=== PATIENT | male | born 1950 | race Caucasian/White ===

== ENCOUNTER 2019-02-01 12:00 | Outpatient (RCR) | payer MEDICARE, SELFPAY ==
--- NOTE | 2018-12-07 15:14 | HP.SP.AD ---
History - History Date of Eval: 12/07/18 Other Relevant Medical History/Diagnoses/Surgery: Pt has glaucoma. He does not drive. Pt has lived in assisted living for almost four [address] [facility]. Smoking Status: Former smoker Hx Smoking Cessation Date: 8 months ago - Pain Is pain an issue with your current prescribed condition?: No - Personal Education History: High School graduate Occupation: Maintenance Apprentice Patients Living Arrangements: Assisted Living Patient Allergies - Allergies Allergies No Known Allergies Allergy (Verified 07/25/16 13:37) CLQT - CLQT CLQT Administered: Yes CLQT: Cognitive Linguistic Quick Test (CLQT) is a criterion - referenced assessment designed for adults between the ages of 18 and 89 with known or suspected neurological dysfuntions. The CLQT is to assess strength and weaknesses in five cognitive domains. Severity ratings are within normal limits, mild, moderate, severe deficits. The subtests are as follows: Date: 12/07/18 - Attention Attention: Mild - Memory Memory: Mild - Executive Functions Executive Functions: WNL - Language Language: WNL - Visuospatial Skills Visuospatial Skills: WNL - Composite Severity Rating Composite Severity Rating: WNL - Clock Drawing Severity Rating Clock Drawing Severity Rating: Mild - CLQT Comments Comments The pt was WNL on all subtests for his age but Clock Drawing (exhibited STM memory deficit by recalling 10 mins TILL 11:00 vs. 10 mins AFTER 11:00), Mazes (in which he exhibited mild difficulty with planning), and Design Generation (in which he niall limited responses indicative of limited mental flexibility). Overall deficits were mild, with the pt stating he has no concerns at home as he resides in an assisted living facility. Nonetheless, the pt may experience difficulty with higher level problem solving and planning especially with limited stimulation, with the need for further therapy beneficial in order to maintain and improve the pt's baseline level of functioning. Plan - Plan Plan: Skilled speech-language therapy is warranted and medically necessary to improve the pt's current level of cognitive-linguistic functioning, as he will benefit from strategies for higher-level planning and problem solving in order to maintain his highest level of safe, independent functioning. - Recommendations Treatment Warranted: Yes - Frequency Frequency: 1x/Week Duration: 4-6 Weeks - Prognosis Prognosis: Good - Goals that are Established: Determination:: Goals will be added/modified as deemed necessary and appropriate. Therapy will be discontinued when results of re-evaluation indicate therapy is no longer needed or lack of progress has been documented. - Goal #1-5 Goal #1: With fading 2ND GRADE TEACHER prompts, the pt will utilize targeted strategies to complete planning and problem solving activities of increasing complexity with 90% accuracy in 2/3 sessions. Goal #2: The pt will utilize compensatory strategies and provide appropriate solutions and rationale to everyday problem situations with 90% accuracy in 2/3 sessions. Education - Patient Instruction Patient Education: Diagnosis
--- NOTE | 2019-02-01 18:05 | HP.SP.DC_ITS ---
ST Discharge Summary - Discharged: Discharge: Mika Dominguez is discharged from outpatient speech-language therapy effective 02/01/19. Mika attended three sessions following his initial evaluation after not showing up for and/or cancelling three sessions. Therapy focused on patient buy-in to the importance of cognitive exercises/activities vs. a primarily sedintary lifestyle in order to maintain and/or improve his current level of cognitive-linguistic functioning. Mika was able to complete higher-level deductive reasoning puzzles with minimal assistance. He consistently brought completed homework activities back to therapy. The pt states that he is lazy but is planning to play cards, engage in social activit ies, etc... as recommended. Please reconsult as necessary.
== END 2019-02-01 19:00 | disposition home or self-care (01) ==
LOC: SP 12:00
PROVIDERS: Family Provider Family Medicine Geriatric Medicine; PCP Family Medicine Geriatric Medicine; Visit Provider Nurse Practitioner Adult Health
DX: R41.841 Cognitive communication deficit (principal)
CPT/HCPCS: 92507; 92523

== ENCOUNTER 2021-03-04 22:47 | Emergency (ER) | payer MEDICARE, MEDICAID, SELFPAY ==
[2021-03-04 22:48] VITALS: BP 128/70; PULSE 57; RESP 16; TEMP 36.9; O2SAT 93; BMI 37.5
--- NOTE | 2021-03-04 23:09 | EKG12_ITS ---
Test Reason : WEAKNESS Blood Pressure : / mmHG Vent. Rate : 057 BPM Atrial Rate : 057 BPM P-R Int : 244 ms QRS Dur : 096 ms QT Int : 434 ms P-R-T Axes : 000 -43 018 degrees QTc Int : 422 ms Sinus bradycardia with 1st degree A-V block Left axis deviation Inferior infarct , age undetermined Abnormal ECG Confirmed by LELAND LOJA, MALICK ([id number]), film editor supervisor BASSAM FLANAGAN ([id number]) on 03/07/2021 9:51:47 AM Referred By: ESTHER Confirmed By:MALICK HA MD
--- NOTE | 2021-03-04 23:34 | EX.ED.DYSGE1 ---
HPI History of Present Illness Chief Complaint: Weakness Informant: patient Narrative Narrative: Patient states that he lives at assisted living. He was watching TV and having a few beers. When he got up he just felt generalized weakness. He initially got up to his hands and knees and then made it to the bathroom to go the bathroom. He went back watch more TV. When he got up again he still felt a little bit weak. But he was able to walk out to down the wasserman. He then got a little bit weak. But this was not focal weakness. He states it was not one side. He never had any pain in any area. He had no shortness of breath. He just felt like his legs were tired. Patient states he normally drinks 2 or 3 tall boy beers in a day. He thinks he lost track today and may have drank more. He thinks this was all due to drinking too much beer but he is not sure. He states he feels fine laying in bed. When he walked he just felt a little weak. But he never had any vertigo or dizziness or instability at all. PFSH PFSH Medical History Ankle fracture, right Cataract COPD (chronic obstructive pulmonary disease) Elbow fracture, right HTN (hypertension) Retinal detachment Smoker Allergy/AdvReac Type Severity Reaction Status Date / Time No Known Allergies Allergy Verified 03/04/21 22:52 Social History Smoking Status: Current some day smoker tobacco type: cigarettes ROS ROS ED Constitutional Constitutional ED: Denies chills, fever(s), sweats or weight loss Eyes Eyes: Denies blurry vision, change in vision or diplopia ENT ENT ED: Denies rhinorrhea or sore throat Cardiovascular Cardiovascular: Denies chest pain, palpitations or racing heartbeat Respiratory/Chest Respiratory/Chest: Denies cough or dyspnea Gastrointestinal Gastrointestinal: Denies abdominal pain, diarrhea, melena, nausea or vomiting Genitourinary Genitourinary ED: Denies dysuria Musculoskeletal Musculoskeletal: Denies arthralgias, back pain, myalgias or neck pain Integumentary Denies rash Neurologic Neurologic: Reports other Details: Patient has some generalized weakness but nothing focal or lateralizing. See history of present illness. ; Denies headache(s), paresthesias or weakness Psychiatric Psychiatric: Denies depression Endocrine Endocrinology: Denies polydipsia or polyuria Allergic/Immunologic Allergic/Immunologic ED: Denies urticaria EXAM Physical Exam Const Vital Signs: 03/04/21 22:48 03/05/21 06:51 Temperature 98.5 F Temperature Source Oral Pulse Rate 57 L Respiratory Rate 16 16 Blood Pressure 128/70 H Blood Pressure Mean 89 Pulse Ox 93 Oxygen Delivery Method Nasal Cannula Oxygen Flow Rate (L/min) 2 Positive well nourished and well developed General Appearance ED: well developed HEENT Reports moist mucous membranes Negative for trauma Eyes Negative for PERRL or EOMs intact bilaterally Eyes Narrative: Pupils 2 mm equal and reactive. Neck no JVD Chest Wall inspection of chest normal Resp normal respiratory effort and clear to auscultation bilaterally Cardio regular rate and regular rhythm GI normal to inspection, nondistended, normoactive bowel sounds and non-tender Palpation: soft Back/Spine no CVA tenderness Extremity normal to inspection General Extremety ED: Negative for tenderness Neuro oriented x3 and CN's II-XII intact bilaterally Neuro Narrative: Patient has an NIH of 0. Sensorium / Orientation: alert Motor Exam: strength 5/5 throughout Psych mental status grossly normal Skin no rashes or lesions noted MDM MDM MDM Narrative Medical decision making narrative: Patient's blood work showed normal CBC including white count and hemoglobin. Electrolytes showed minimally decreased sodium but this has been chronic for him. Alcohol was elevated at 114. Urinalysis was negative. Patient still feels well. We will walk him to make sure he feels okay. If he does I think he is okay to go. His symptoms were more consistent with generalized weakness and likely due to the increase alcohol intake. This is what he thought cause this. Patient was complaining that his left foot was sore when he put weight on it. He thought he might have bruised this. But he denies falling and injuring it. I did do three-view x-ray of the left foot that I looked at. I do not see any acute fracture. Patient has been up walking and moving. He is stable. I think his overall weakness likely was caused by increased alcohol. We will get him back to his assisted living facility. Lab Data Attestation: I reviewed the patient's lab results. Labs: Laboratory Results - last 24 hr 03/04/21 03/04/21 03/04/21 23:29 23:29 23:29 WBC 10.9 RBC 4.90 Hgb 13.8 Hct 41.9 MCV 85.5 MCH 28.2 MCHC 32.9 RDW Std Deviation 39.4 RDW Coeff of Amira 12.7 Plt Count 312 MPV 9.1 Immature Gran % (Auto) 0.300 Neut % (Auto) 73.6 H Lymph % (Auto) 17.2 L [place] % (Auto) 6.1 Eos % (Auto) 2.1 Baso % (Auto) 0.7 Absolute Neuts (auto) 8.0 H Absolute Lymphs (auto) 1.87 Nucleated RBC % 0 Sodium 131 L Potassium 3.7 Chloride 98 Carbon Dioxide 23.0 Anion Gap 10 BUN 9 Creatinine 0.84 Estim Creat Clear Calc 84.49 Est GFR (MDRD) Af Amer 117 Est GFR (MDRD) Non-Af 96 BUN/Creatinine Ratio 10.8 Glucose 99 Calcium 8.9 Urine Color Urine Clarity Urine pH Ur Specific [place] Urine Protein Urine Glucose (UA) Urine Ketones Urine Occult Blood Urine Nitrite Urine Bilirubin Urine Urobilinogen Ur Leukocyte Esterase Urine RBC Urine WBC Ur Squamous Epith Cells Urine Bacteria Urine Mucus Ethyl Alcohol 114.0 03/05/21 00:32 WBC RBC Hgb Hct MCV MCH MCHC RDW Std Deviation RDW Coeff of [place]ira Plt Count MPV Immature Gran % (Auto) Neut % (Auto) Lymph % (Auto) [place] % (Auto) Eos % (Auto) Baso % (Auto) Absolute Neuts (auto) Absolute Lymphs (auto) Nucleated RBC % Sodium Potassium Chloride Carbon Dioxide Anion Gap BUN Creatinine Estim Creat Clear Calc Est GFR (MDRD) Af Amer Est GFR (MDRD) Non-Af BUN/Creatinine Ratio Glucose Calcium Urine Color Yellow Urine Clarity Clear Urine pH 5.0 Ur Specific [place] 1.015 Urine Protein 100 H Urine Glucose (UA) Normal Urine Ketones Negative Urine Occult Blood 10 H Urine Nitrite Negative Urine Bilirubin Negative Urine Urobilinogen Normal Ur Leukocyte Esterase Negative Urine RBC 0 SEEN Urine WBC 0 SEEN Ur Squamous Epith Cells 0 SEEN Urine Bacteria 0 SEEN Urine Mucus 0 SEEN Ethyl Alcohol Radiography Diagnostic Testing: Radiology Impression Foot X-Ray 03/05/21 02:57 IMPRESSION: No acute osseous abnormality. Electronically Signed: Michel Laguna MD at 4:16 EDT Tel , Service support , EKG Initial EKG: Comments: EKG done for generalized weakness read by me shows sinus rhythm with mild bradycardia and a rate of 57. No acute ST elevation or depression. He does have a first-degree AV block. QRS duration and QTc are normal. Discharge Plan Triage Chief Complaint: Weakness ED Provider: Murray Mulligan Dx/Rx/DC Orders Clinical Impression: Weakness generalized, Alcohol intoxication, Contusion of foot, left Instructions: ED Alcohol Intoxication, ED Weakness (Uncertain Cause) Primary Care Provider: George Gutierrez Chi Referrals: George Gutierrez Chi, MD [Primary Care Provider] - 3-5 Days if not improving Disposition Disposition: Assisted Living Discharge Location: [facility] Discharge Date/Time: 03/05/21 06:52
[2021-03-05 00:08] LABS: Anion Gap 10 (5-15); BUN 9 mg/dL (7-18); BUN/Creat Ratio 10.8 RATIO (10-20); Calcium,Total 8.9 mg/dL (8.5-10.1); Chloride 98 mmol/L (98-107); Creatinine, Serum 0.84 mg/dL (0.70-1.30); EST Glomerular Filtration Rate 96 mL/min (>60); Est Glom Filt Rate - Afr Amer 117 mL/min (>60); Estimated Creatinine Clearance 84.49 ml/min; Glucose 99 mg/dL (74-106); Potassium 3.7 mmol/L (3.5-5.1); Sodium Level 131 mmol/L (136-145)
[2021-03-05 00:25] LABS: Absolute Lymphocyte Count 1.87 X10^3/uL (0.83-4.51); Basophil# 0.08 X10^3/uL; Basophil% 0.7 % (0-1); Eosinophil# 0.23 X10^3/uL; Eosinophils% 2.1 % (0-5); Hematocrit 41.9 % (40-54); Hemoglobin 13.8 g/dL (13.0-16.5); Lymphocyte # 1.87 X10^3/ul (0.83-4.51); Lymphocyte % 17.2 % (19-41); Mean Corp Hgb Conc 32.9 g/dL (32-36); Mean Corpuscular Hgb 28.2 pg (27.0-32.0); Mean Corpuscular Volume 85.5 fL (80-94); Mean Platelet Vol. 9.1 fl (6.2-12.0); Monocyte# 0.66 X10^3/uL; Monocyte% 6.1 % (0-10); NRBC Flagged by Analyzer 0 % (0-5); Neutrophil # 8.01 X10^3/uL (2.7-7.7); Neutrophil % 73.6 % (47-70); Platelet Count 312 K/mm3 (150-450); RBC Distribution Width CV 12.7 % (11.6-14.6); RBC Distribution Width SD 39.4 fl (35.1-43.9); White Blood Count 10.9 K/mm3 (4.4-11.0)
[2021-03-05 00:37] LABS: Bacteria 0 SEEN /hpf (None Seen); Mucous, Urine 0 SEEN /hpf (<or=2+); Red Blood Cells-Urine 0 SEEN /hpf (0-5); Squamous Epithelial Cells - UA 0 SEEN /hpf (0-5); White Blood Cells 0 SEEN /hpf (0-5)
[2021-03-05 00:43] LABS: Color, Urine Yellow (Yellow); Glucose, Dipstick Normal (Normal); Ketone-Dipstick Negative (Negative); Leukocyte Esterase-Dipstick Negative /ul (Negative); Nitrite-Dipstick Negative (Negative); Occult Blood-Urine 10 /ul (Negative); Protein-Dipstick 100 mg/dl (Negative); Specific Gravity, Urine 1.015 (1.002-1.030); Urine Bilirubin Dipstick Negative (Negative); Urine Clarity Clear (Clear); Urine Urobilinogen Normal (Normal)
--- NOTE | 2021-03-05 02:57 | RAD_ITS ---
STUDY: X-RAY - LEFT FOOT CLINICAL: Male, 71 years old. Pain. No known injury. TECHNIQUE: 3 view(s) of the foot. COMPARISON: None. FINDINGS: No visible fracture. No osseous destruction. Alignment anatomic. Mild degenerative changes. No acute soft tissue abnormality. Calcific atherosclerosis. RAD/Foot min 3 Views IMPRESSION: No acute osseous abnormality. Electronically Signed: Michel Laguna MD at 4:16 EDT Tel , Service support ,
[2021-03-05] MEDS: Acetaminophen 325 MG Tablet 650 MG PO (03:03)
[2021-03-05 06:51] VITALS: RESP 16
== END 2021-03-05 06:52 | disposition home or self-care (01) ==
PROVIDERS: Emergency Provider Emergency Medicine; PCP Family Medicine Geriatric Medicine
DX: F10.129 Alcohol abuse with intoxication, unspecified (principal); R53.1 Weakness; S90.32XA Contusion of left foot, initial encounter; J44.9 Chronic obstructive pulmonary disease, unspecified; I10 Essential (primary) hypertension; F17.210 Nicotine dependence, cigarettes, uncomplicated; Y90.5 Blood alcohol level of 100-119 mg/100 ml; X58.XXXA Exposure to other specified factors, initial encounter; Y93.89 Activity, other specified; Y92.89 Other specified places as the place of occurrence of the external cause; Y99.8 Other external cause status
CPT/HCPCS: 73630; 80048; 81001; 82077; 85025; 93005; 99284

== ENCOUNTER → 2021-06-04 14:35 | Outpatient (CLI) | payer MEDICARE, MEDICAID, SELFPAY ==
[2021-06-04 17:45] LABS: Absolute Lymphocyte Count 2.02 X10^3/uL (0.83-4.51); Absolute Neutrophil Count 5.5 X10^3/uL (2.0-7.7); Basophil# 0.08 X10^3/uL; Basophil% 0.9 % (0-1); Eosinophil# 0.42 X10^3/uL; Eosinophils% 4.7 % (0-5); Hematocrit 41.9 % (40-54); Hemoglobin 13.7 g/dL (13.0-16.5); Lymphocyte # 2.02 X10^3/ul (0.83-4.51); Lymphocyte % 22.6 % (19-41); Mean Corp Hgb Conc 32.7 g/dL (32-36); Mean Corpuscular Hgb 27.5 pg (27.0-32.0); Mean Platelet Vol. 9.2 fl (6.2-12.0); Monocyte# 0.86 X10^3/uL; Monocyte% 9.6 % (0-10); NRBC Flagged by Analyzer 0 % (0-5); Neutrophil # 5.54 X10^3/uL (2.7-7.7); Neutrophil % 61.9 % (47-70); Platelet Count 344 K/mm3 (150-450); RBC Distribution Width CV 12.6 % (11.6-14.6); Red Blood Count 4.99 M/mm3 (4.6-6.2)
[2021-06-04 18:13] LABS: ALB/GLOB Ratio 0.8 RATIO (0.9-2.4); AST(SGOT) 24 U/L (15-37); Alanine Aminotransfer ALT/SGPT 48 U/L (16-61); Albumin, Serum 3.5 g/dL (3.2-5.0); Alkaline Phosphatase 112 U/L (45-117); Anion Gap 5 (5-15); BUN 7 mg/dL (7-18); BUN/Creat Ratio 7.5 RATIO (10-20); Calcium,Total 8.8 mg/dL (8.5-10.1); Chloride 100 mmol/L (98-107); Cholesterol 159 mg/dL (200); Creatinine, Serum 0.93 mg/dL (0.70-1.30); EST Glomerular Filtration Rate 85 mL/min (>60); Est Glom Filt Rate - Afr Amer 103 mL/min (>60); Globulin 4.3 g/dL (2.2-4.2); Glucose 89 mg/dL (74-106); High Density Lipoprotein 88 mg/dL; PSA,Total- Diagnostic 0.51 ng/mL (0.0-4.0); Potassium 3.8 mmol/L (3.5-5.1); Protein, Total 7.8 g/dL (6.4-8.2); Sodium Level 134 mmol/L (136-145); Triglycerides 117 mg/dL; Very Low Density Lipoprotein 23 mg/dL (5-40)
== END ==
PROVIDERS: PCP Family Medicine Geriatric Medicine; Visit Provider Registered Nurse
DX: I10 Essential (primary) hypertension (principal); N40.0 Benign prostatic hyperplasia without lower urinary tract symptoms; E55.9 Vitamin D deficiency, unspecified; E78.5 Hyperlipidemia, unspecified
CPT/HCPCS: 36415; 80053; 80061; 82306; 84153; 85025

== ENCOUNTER → 2022-03-20 | Outpatient (CLI) | payer MEDICARE, MEDICAID, SELFPAY ==
[2022-03-20 18:13] LABS: Anion Gap 5 (5-15); BUN 13 mg/dL (7-18); BUN/Creat Ratio 13.1 RATIO (10-20); Calcium,Total 9.2 mg/dL (8.5-10.1); Chloride 104 mmol/L (98-107); Cholesterol 154 mg/dL (200); Creatinine, Serum 0.99 mg/dL (0.70-1.30); EST Glomerular Filtration Rate 79 mL/min (>60); Est Glom Filt Rate - Afr Amer 96 mL/min (>60); Glucose 90 mg/dL (74-106); High Density Lipoprotein 56 mg/dL; Potassium 3.6 mmol/L (3.5-5.1); Sodium Level 138 mmol/L (136-145); Triglycerides 134 mg/dL; Very Low Density Lipoprotein 27 mg/dL (5-40)
== END | disposition home or self-care (01) ==
LOC: MFPLAB 15:36
PROVIDERS: PCP Family Medicine; Referring Provider Family Medicine; Visit Provider Family Medicine
DX: I10 Essential (primary) hypertension (principal)
CPT/HCPCS: 36415; 80048; 80061

== ENCOUNTER 2022-08-04 12:22 | Observation (INO) | payer MEDICARE, MEDICAID, SELFPAY ==
[2022-08-04] VITALS (12 sets, daily range): BP systolic 143–170; BP diastolic 82–144; PULSE 63–668; RESP 13–22; TEMP 36.1–36.6; O2SAT 85–95; BMI 85.3; BMI 33.5; BMI 32.5
--- NOTE | 2022-08-04 12:20 | CT_ITS ---
We are attempting to reach an attending provider to discuss findings. An addendum with communication details will be sent when the communication is complete. HISTORY: Neuro deficit, acute, stroke suspected. TECHNIQUE: [place]/head and carotid CT angiogram protocol was performed after the intravenous administration of 100 mL Isovue 370. NASCET criteria using the distal ICAs for comparison were used for evaluation of stenoses. 3D reconstructions were reviewed. A radiation dose optimization technique was used for this scan. 1745 images. COMPARISON: CT head same day. FINDINGS: AORTIC ARCH AND BRANCHES: Mild atherosclerosis. RIGHT CCA: Mild calcified plaque at the bifurcation. No occlusion, significant stenosis or dissection. RIGHT ICA: Calcified plaque with less than 50% stenosis proximally. No occlusion, significant stenosis or dissection. LEFT CCA: Mild calcified plaque at the bifurcation. No occlusion, significant stenosis or dissection. LEFT ICA: Calcified plaque proximally less than 50% stenosis. No occlusion, significant stenosis or dissection. RIGHT VERTEBRAL ARTERY: Dominant with mild calcified plaque at the origin. No occlusion, significant stenosis or dissection. LEFT VERTEBRAL ARTERY: Hypoplastic and patent. ICAs: No significant stenosis at the intracranial/visualized segments. Moderate calcified plaque at both carotid siphons. ACAs: No significant stenosis at the visualized segments. MCAs: No significant stenosis at the visualized segments. change over: No significant stenosis at the visualized segments. BASILAR ARTERY: Mild calcified plaque without significant stenosis or occlusion. VERTEBRAL ARTERIES: Dominant intracranial right vertebral and hypoplastic left vertebral arteries with approximately 60% stenosis. No evidence of intracranial aneurysm or vascular malformation. CT/STROKE CTA Head AND Neck W/Con IMPRESSION: Bilateral carotid atherosclerosis without evidence for significant stenosis or occlusion in the carotid or vertebral arteries of the neck. No evidence for large vessel occlusion the [place] region. 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 Electronically Signed: Olga Champagne MD at 12:56 EST ,
--- NOTE | 2022-08-04 12:25 | RAD_ITS ---
HISTORY: Neuro deficit, acute, stroke suspected. TECHNIQUE: XR Chest 1 View. COMPARISON: CT 02/15/2015. FINDINGS: CARDIOMEDIASTINAL BORDERS: Cardiac silhouette within normal limits in size. Mediastinal contour unremarkable with calcification of the aortic knob. LUNGS: Mild linear and patchy opacities in the lung bases. PLEURA: Mild left pleural scarring without pleural effusion or pneumothorax identified. OSSEOUS STRUCTURES: Degenerative change. RAD/Chest 1 View IMPRESSION: Mild bibasilar atelectasis or inflammation. Electronically Signed: Olga Champagne MD at 13:32 EST ,
--- NOTE | 2022-08-04 12:25 | EKG12_ITS ---
Test Reason : POSS STROKE Blood Pressure : / mmHG Vent. Rate : 066 BPM Atrial Rate : 066 BPM P-R Int : 236 ms QRS Dur : 112 ms QT Int : 478 ms P-R-T Axes : 000 -24 042 degrees QTc Int : 501 ms Sinus rhythm with 1st degree A-V block Prolonged QT Abnormal ECG Confirmed by TUNDE LOJA, ELANA ([id number]), pictures editor BASSAM FLANAGAN ([id number]) on 08/05/2022 1:56:15 PM Referred By: Confirmed By:ELANA GRIFFITHS MD
--- NOTE | 2022-08-04 12:25 | CT_ITS ---
We are attempting to reach an attending provider to discuss findings. An addendum with communication details will be sent when the communication is complete. HISTORY: Neuro deficit, acute, stroke suspected. TECHNIQUE: Multiple axial images were obtained of the head without intravenous contrast. A radiation dose optimization technique was used for this scan. 337 images. COMPARISON: None. FINDINGS: BRAIN PARENCHYMA: Multiple foci and zones of low attenuation in the bilateral cerebral white matter compatible with chronic small vessel ischemic gliosis. Old lacunar infarcts in the left basal ganglia. No acute intra-axial hemorrhage identified. CSF SPACES: Generalized volume loss. No midline shift or other significant mass effect. No acute extra-axial hemorrhage seen. OTHER: Intact calvarium. No significant air fluid levels in the paranasal sinuses or mastoid air cells. Bilateral scleral banding. Small left frontal scalp lipoma. ASPECTS Score for Acute Strokes: 10 CT/STROKE Brain/Head without Cont IMPRESSION: No acute intracranial process identified. Chronic involutional and white matter changes. Electronically Signed: Olga Champagne MD at 12:45 EST ,
[2022-08-04 12:34] LABS: Absolute Lymphocyte Count 1.53 X10^3/uL (0.83-4.51); Absolute Neutrophil Count 8.4 X10^3/uL (2.0-7.7); Basophil# 0.04 X10^3/uL; Basophil% 0.4 % (0-1); Hematocrit 43.9 % (40-54); Hemoglobin 14.6 g/dL (13.0-16.5); Lymphocyte # 1.53 X10^3/ul (0.83-4.51); Lymphocyte % 14.8 % (19-41); Mean Corp Hgb Conc 33.3 g/dL (32-36); Mean Corpuscular Hgb 28.3 pg (27.0-32.0); Mean Corpuscular Volume 85.2 fL (80-94); Mean Platelet Vol. 9.6 fl (6.2-12.0); Monocyte# 0.22 X10^3/uL; Monocyte% 2.1 % (0-10); NRBC Flagged by Analyzer 0 % (0-5); Neutrophil # 8.44 X10^3/uL (2.7-7.7); Neutrophil % 81.9 % (47-70); Platelet Count 327 K/mm3 (150-450); RBC Distribution Width CV 14.3 % (11.6-14.6); Red Blood Count 5.15 M/mm3 (4.6-6.2); White Blood Count 10.3 K/mm3 (4.4-11.0)
[2022-08-04 12:43] LABS: Prothrombin Time (Protime)PT. 13.1 SECONDS (11.7-14.9)
[2022-08-04 12:49] LABS: Anion Gap 12 (5-15); BUN 10 mg/dL (7-18); Calcium,Total 9.1 mg/dL (8.5-10.1); Chloride 101 mmol/L (98-107); Creatinine, Serum 0.83 mg/dL (0.70-1.30); EST Glomerular Filtration Rate 97 mL/min (>60); Est Glom Filt Rate - Afr Amer 117 mL/min (>60); Estimated Creatinine Clearance 84.29 ml/min; Glucose 141 mg/dL (74-106); Potassium 3.5 mmol/L (3.5-5.1); Sodium Level 136 mmol/L (136-145); Troponin-I HS 10 pg/mL (3.0-78.0)
[2022-08-04 12:53] LABS: Mucous, Urine 0 SEEN /hpf (<or=2+)
[2022-08-04 12:54] LABS: Color, Urine Yellow (Yellow); Glucose, Dipstick Normal (Normal); Leukocyte Esterase-Dipstick 500 /ul (Negative); Nitrite-Dipstick Negative (Negative); Occult Blood-Urine 25 /ul (Negative); Protein-Dipstick 100 mg/dl (Negative); Specific Gravity, Urine 1.015 (1.002-1.030); Urine Bilirubin Dipstick Negative (Negative); Urine Clarity Cloudy (Clear); Urine Urobilinogen Normal (Normal); Urine pH 6.5 (5.0 - 8.0)
[2022-08-04 12:58] LABS: Ketone-Dipstick 150 mg/dl (Negative)
[2022-08-04 13:05] LABS: Bacteria 3+ /hpf (None Seen); Red Blood Cells-Urine 0-5 SEEN /hpf (0-5); Squamous Epithelial Cells - UA 0-5 SEEN /hpf (0-5); White Blood Cells >100 SEEN /hpf (0-5)
[2022-08-04] MEDS: Ondansetron 4 MG/2 ML Vial IV (13:11)
[2022-08-04] MEDS: Ceftriaxone 1 GM/50 ML BAG IV (14:08)
--- NOTE | 2022-08-04 14:41 | EX.ED.DYSGE1 ---
HPI History of Present Illness Chief Complaint: Stroke Alert Informant: patient and EMS Onset/Context/Timing Onset: Today (99) Quality: Dysarthria, right-sided facial droop, bilateral upper extremity ataxia Worsened by: nothing Relieved by: nothing Associated Symptoms Associated Symptoms: no additional Narrative Narrative: Patient has a remote history of stroke with no deficits. He was sent today by his nurse. She noted he had been complaining of vertigo since 1 AM. Unsure of when his last known normal was. EMS noted dysarthria and right-sided facial droop as well as bilateral upper extremity ataxia and activated a stroke alert. Prior similar symptoms: No Recent Illness/Hospitalization: No PFSH PFS Medical History Ankle fracture, right Cataract COPD (chronic obstructive pulmonary disease) Elbow fracture, right HTN (hypertension) Retinal detachment Smoker Stroke Home Medications acetaminophen 325 mg tablet 325 mg PO QHS BACK PAIN 08/04/22 [History Last Taken 08/03/22] albuterol sulfate 90 mcg/actuation aerosol inhaler 2 puff inhalation Q4H PRN PRN Shortness Of Breath 08/04/22 [History Last Taken Unknown] amlodipine 10 mg tablet 10 mg PO DAILY BP 08/04/22 [History Last Taken 08/04/22] aspirin 81 mg chewable tablet 81 mg PO DAILY HEALTH 08/04/22 [History Last Taken 08/04/22] bimatoprost 0.01 % eye drops ([place]umigan) 1 drp RIGHT EYE QHS 08/04/22 [History Last Taken 08/03/22] cholecalciferol (vitamin D3) 25 mcg (1,000 unit) tablet 25 mcg PO DAILY SUPPLEMENT 08/04/22 [History Last Taken 08/04/22] cyanocobalamin (vitamin B-12) 500 mcg tablet 500 mcg PO DAILY SUPPLEMENT 08/04/22 [History Last Taken 08/04/22] ergocalciferol (vitamin D2) 1,250 mcg (50,000 unit) capsule 1,250 mcg PO SA SUPPLEMENT 08/04/22 [History Last Taken 08/03/22] fluticasone propionate 50 mcg/actuation nasal spray,suspension 1 spray intranasal DAILY PRN ALLERGIES 08/04/22 [History Last Taken Unknown] guaifenesin 100 mg/5 mL oral liquid 200 mg PO QHS PRN Congestion 08/04/22 [History Last Taken Unknown] guaifenesin 400 mg tablet (Mucus Relief) 400 mg PO TID PRN Congestion 08/04/22 [History Last Taken Unknown] hydroxyzine pamoate 50 mg capsule 50 mg PO TID ANXIETY 08/04/22 [History Last Taken 08/04/22] lisinopril 20 mg tablet 20 mg PO BID BP 08/04/22 [History Last Taken 08/04/22] loratadine 10 mg tablet 10 mg PO QHS ALLERGIES 08/04/22 [History Last Taken 08/03/22] melatonin 5 mg tablet 10 mg PO QHS SLEEP 08/04/22 [History Last Taken 08/03/22] metoprolol tartrate 25 mg tablet 12.5 mg PO BID BP 08/04/22 [History Last Taken 08/04/22] mirabegron 25 mg tablet,extended release 24 hr (Myrbetriq) 25 mg PO DAILY BLADDER 08/04/22 [History Last Taken 08/04/22] mirtazapine 30 mg tablet 30 mg PO QHS SLEEP 08/04/22 [History Last Taken 08/03/22] montelukast 10 mg tablet 10 mg PO QHS ALLERGIES 08/04/22 [History Last Taken 08/03/22] multivitamin 1 tab PO DAILY SUPPLEMENT 08/04/22 [History Last Taken 08/04/22] potassium chloride 10 mEq capsule,extended release 20 meq PO DAILY POTASSIUM 08/04/22 [History Last Taken 08/04/22] pravastatin 40 mg tablet 40 mg PO QHS CHOLESTEROL 08/04/22 [History Last Taken 08/03/22] tamsulosin 0.4 mg capsule 0.4 mg PO QHS PROSTATE 08/04/22 [History Last Taken 08/03/22] timolol maleate 0.5 % eye drops 1 drp RIGHT EYE BID 08/04/22 [History Last Taken 08/04/22] trazodone 100 mg tablet 100 mg PO QHS SLEEP 08/04/22 [History Last Taken 08/03/22] trazodone 50 mg tablet 25 mg PO QHS SLEEP 08/04/22 [History Last Taken 08/03/22] Allergy/AdvReac Type Severity Reaction Status Date / Time No Known Allergies Allergy Verified 03/04/21 22:52 Social History Smoking Status: Current some day smoker tobacco type: cigarettes ROS ROS ED Constitutional Constitutional ED: Denies chills or fever(s) Eyes Eyes: Denies blurry vision or change in vision ENT ENT ED: Denies ear pain Cardiovascular Cardiovascular: Denies chest pain Respiratory/Chest Respiratory/Chest: Denies cough Gastrointestinal Gastrointestinal: Denies abdominal pain, nausea or vomiting Genitourinary Genitourinary ED: Denies dysuria Musculoskeletal Musculoskeletal: Denies arthralgias, back pain, myalgias or neck pain Integumentary Denies abscess Neurologic Neurologic: Denies headache(s), paresthesias or weakness Psychiatric Psychiatric: Denies anxiety Endocrine Endocrinology: Denies cold intolerance Hematologic/Lymphatic Hematologic/Lymphatic: Reports systems reviewed and no addt'l complaints, except as documented Allergic/Immunologic Allergic/Immunologic ED: Denies mouth swelling EXAM Physical Exam Const Vital Signs: 08/04/22 12:25 08/04/22 12:31 08/04/22 12:30 Temperature 97.0 F L Temperature Source Temporal Pulse Rate 668 H 68 Respiratory Rate 14 Blood Pressure 164/86 H 164/86 H Blood Pressure Mean 112 112 Pulse Ox 93 85 85 Oxygen Delivery Method Room Air Room Air Room Air Oxygen Flow Rate (L/min) 08/04/22 12:39 08/04/22 13:00 08/04/22 13:00 Temperature Temperature Source Pulse Rate 65 65 Respiratory Rate 13 13 Blood Pressure 153/86 H 153/86 H Blood Pressure Mean 108 108 Pulse Ox 92 92 92 Oxygen Delivery Method Nasal Cannula Nasal Cannula Nasal Cannula Oxygen Flow Rate (L/min) 2 2 2 08/04/22 13:23 08/04/22 13:30 08/04/22 14:00 Temperature Temperature Source Pulse Rate 63 67 77 Respiratory Rate 17 15 22 H Blood Pressure 164/91 H 161/93 H 157/86 H Blood Pressure Mean 115 115 109 Pulse Ox 93 90 92 Oxygen Delivery Method Nasal Cannula Nasal Cannula Nasal Cannula Oxygen Flow Rate (L/min) 2 2 2 08/04/22 14:00 08/04/22 14:30 08/04/22 14:30 Temperature 97.0 F L Temperature Source Temporal Pulse Rate 77 85 85 Respiratory Rate 22 H 20 H 20 H Blood Pressure 157/86 H 170/144 H 170/144 H Blood Pressure Mean 109 152 152 Pulse Ox 92 93 93 Oxygen Delivery Method Nasal Cannula Nasal Cannula Nasal Cannula Oxygen Flow Rate (L/min) 2 3 3 Positive well developed and unkempt General Appearance ED: unkempt and well developed HEENT Reports dry mucous membranes Mouth ED: Yes dry mucous membranes Mouth: dry mucous membranes Eyes PERRL and EOMs intact bilaterally Resp normal respiratory effort and clear to auscultation bilaterally Cardio regular rate and regular rhythm GI normal to inspection, nondistended, normoactive bowel sounds Extremity normal to inspection Neuro oriented x3, CN's II-XII intact bilaterally and no sensory deficits noted Neuro Narrative: Bilateral upper extremity ataxia, mild. Dysarthria, and the patient reports this is not new. He has some facial asymmetry with droop on the right, but labial fold is normal. Sensorium / Orientation: alert Psych mental status grossly normal Appearance: unkempt Skin no rashes or lesions noted MDM MDM MDM Narrative Medical decision making narrative: EKG showed sinus rhythm at a rate of 66 with prolonged QT. No sign of infarction. This was interpreted by me and contributed to patient care in the ED. CT brain and CTA head and neck showed no acute process, just chronic changes. I agree with the radiologist interpretation. Chest x-ray showed no acute pathology, interpreted by the radiologist and myself. Stroke evaluation was performed. Given the unclear etiology, certainly at 11 hours or more duration, he is not a candidate for tPA. There is no evidence of large vessel occlusion. I am not certain if all of the symptoms are new, or if just the vertigo is new. White count is normal. Hemoglobin normal. Coags unremarkable. Metabolic panel normal except glucose 141. Nothing acute. Troponin normal, 10. Urinalysis does show signs of infection. Cultures were sent and he was treated with Rocephin. I am not sure if his vertigo or other symptoms are related to stroke. They are complicated by an underlying UTI. He also has a history of alcohol abuse, so I did send an alcohol level. He has some social issues clearly contributing to this. Hospitalist was contacted to admit for further care. Impression #1 vertigo #2 UTI #3 history of alcohol abuse #4 history of stroke Critical care time 39 minutes excluding any billable procedure time for emergent care of the patient. Lab Data Attestation: I reviewed the patient's lab results. Labs: Laboratory Results - last 24 hr 08/04/22 08/04/22 08/04/22 12:12 12:12 12:12 WBC 10.3 RBC 5.15 Hgb 14.6 Hct 43.9 MCV 85.2 MCH 28.3 MCHC 33.3 RDW Std Deviation 44.0 H RDW Coeff of Amira 14.3 Plt Count 327 MPV 9.6 Immature Gran % (Auto) 0.800 Neut % (Auto) 81.9 H Lymph % (Auto) 14.8 L [place] % (Auto) 2.1 Eos % (Auto) 0.0 Baso % (Auto) 0.4 Absolute Neuts (auto) 8.4 H Absolute Lymphs (auto) 1.53 Nucleated RBC % 0 PT 13.1 INR 1.0 APTT 33.0 Sodium 136 Potassium 3.5 Chloride 101 Carbon Dioxide 23.0 Anion Gap 12 BUN 10 Creatinine 0.83 Estim Creat Clear Calc 84.29 Est GFR (MDRD) Af Amer 117 Est GFR (MDRD) Non-Af 97 BUN/Creatinine Ratio 12.0 Glucose 141 H Calcium 9.1 Troponin I High Sens 10 Urine Color Urine Clarity Urine pH Ur Specific [place] Urine Protein Urine Glucose (UA) Urine Ketones Urine Occult Blood Urine Nitrite Urine Bilirubin Urine Urobilinogen Ur Leukocyte Esterase Urine RBC Urine WBC Ur Squamous Epith Cells Urine Bacteria Urine Mucus 08/04/22 12:49 WBC RBC Hgb Hct MCV MCH MCHC RDW Std Deviation RDW Coeff of [place] Plt Count MPV Immature Gran % (Auto) Neut % (Auto) Lymph % (Auto) [place] % (Auto) Eos % (Auto) Baso % (Auto) Absolute Neuts (auto) Absolute Lymphs (auto) Nucleated RBC % PT INR APTT Sodium Potassium Chloride Carbon Dioxide Anion Gap BUN Creatinine Estim Creat Clear Calc Est GFR (MDRD) Af Amer Est GFR (MDRD) Non-Af BUN/Creatinine Ratio Glucose Calcium Troponin I High Sens Urine Color Yellow Urine Clarity Cloudy Urine pH 6.5 Ur Specific [place] 1.015 Urine Protein 100 H Urine Glucose (UA) Normal Urine Ketones 150 A* Urine Occult Blood 25 H Urine Nitrite Negative Urine Bilirubin Negative Urine Urobilinogen Normal Ur Leukocyte Esterase 500 H Urine RBC 0-5 SEEN Urine WBC >100 SEEN Ur Squamous Epith Cells 0-5 SEEN Urine Bacteria 3+ Urine Mucus 0 SEEN Radiography Diagnostic Testing: Clinical Impression(s) from Imaging Studies Head/Neck CTA 08/04/22 12:20 IMPRESSION: Bilateral carotid atherosclerosis without evidence for significant stenosis or occlusion in the carotid or vertebral arteries of the neck. No evidence for large vessel occlusion the [place]. 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 Electronically Signed: Olga Champagne MD at 12:56 EST , ADDENDUM: 08/04/22 1310 IMPRESSION: Bilateral carotid atherosclerosis without evidence for significant stenosis or occlusion in the carotid or vertebral arteries of the neck. No evidence for large vessel occlusion the [place] region. 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 N.B. : The above Results were Read Back by Olga Champagne MD to Sven Martinez MD, and understanding confirmed on 08/04/2022 13:04:44 (ET). Electronically Signed: Olga Champagne MD at 12:56 EST , Brain CT 08/04/22 12:25 IMPRESSION: No acute intracranial process identified. Chronic involutional and white matter changes. Electronically Signed: Olga Champagne MD at 12:45 EST , ADDENDUM: 08/04/22 1253 IMPRESSION: No acute intracranial process identified. Chronic involutional and white matter changes. N.B. : The above Results were Read Back by Olga Champagne MD to Sven Martinez MD, and understanding confirmed on 08/04/2022 12:46:23 (ET). Electronically Signed: Olga Champagne MD at 12:45 EST , Chest X-Ray 08/04/22 12:25 IMPRESSION: Mild bibasilar atelectasis or inflammation. Electronically Signed: Olga Champagne MD at 13:32 EST , Discharge Plan Triage Chief Complaint: Stroke Alert ED Provider: Sven Martinez Dx/Rx/DC Orders Prescriptions: No Action albuterol sulfate 90 mcg/actuation HFA aerosol inhaler 2 puff INHALATION Q4H PRN PRN (Reason: Shortness Of Breath) Label Comments: 2 PUFFS BY MOUTH EVERY 4 HOURS NEEDED FOR COPD potassium chloride 10 mEq capsule, extended release 20 meq PO DAILY Label Comments: 2 CAPSULES (20MEQ) BYAMOUTH DAILY DX: HYPOKALEMIA / NURSE TO REORDER trazodone 50 mg tablet 25 mg PO QHS Label Comments: 1/2 TABLET (25MG) BYTMOUTH AT BEDTIME ([id number]) DX: / NURSE TO REORDER pravastatin 40 mg tablet 40 mg PO QHS Label Comments: 1 TABLET BY MOUTH ATHBEDTIME DX: HYPERLIPIDEMIA / NURSE TO REORDER lisinopril 20 mg tablet 20 mg PO BID Label Comments: 1 TABLET BY MOUTH TWICE AIDAY DX: HYPERTENSION / NURSE TO REORDER hydroxyzine pamoate 50 mg capsule 50 mg PO TID Label Comments: 1 CAPSULE BY MOUTH THREEATIMES DAILY DX:ANXIETY/RNURSE TO REORDER tamsulosin 0.4 mg capsule 0.4 mg PO QHS Label Comments: 1 CAPSULE BY MOUTH ATMBEDTIME DX: / NURSE TOOREORDER trazodone 100 mg tablet 100 mg PO QHS Label Comments: 1 TABLET BY MOUTH ATTBEDTIME DX: INSOMNIA / NURSE TO REORDER amlodipine 10 mg tablet 10 mg PO DAILY Label Comments: 1 TABLET BY MOUTH DAILYIDX: HYPERTENSION / NURSERTO REORDER mirtazapine 30 mg tablet 30 mg PO QHS Label Comments: 1 TABLET BY MOUTH ATHBEDTIME DX: DEPRESSION /GNURSE TO REORDER montelukast 10 mg tablet 10 mg PO QHS Label Comments: 1 TABLET BY MOUTH ATTBEDTIME DX: / NURSE TODREORDERE ergocalciferol (vitamin D2) 1,250 mcg (50,000 unit) capsule 1,250 mcg PO SA Rx Instructions: FRIDAY timolol maleate 0.5 % drops 1 drp RIGHT EYE BID Label Comments: 1 DROP INTO RIGHT EYE 2ITIMES A DAY DX: loratadine 10 mg tablet 10 mg PO QHS Label Comments: 1 TABLET BY MOUTH ATABEDTIME DX: ALLERGIC RHINITIS / NURSE TO REORDER metoprolol tartrate 25 mg tablet 12.5 mg PO BID Label Comments: 1/2 TABLET (12.5MG) BYOMOUTH TWICE DAILY DX:ESSENTIAL HYPERTENSION/ NURSE TO REORDER Lumigan 0.01 % drops 1 drp RIGHT EYE QHS Label Comments: 1 DROP INTO RIGHT EYE ATSBEDTIME Myrbetriq 25 mg tablet extended release 24 hr 25 mg PO DAILY Label Comments: 1 TABLET BY MOUTH DAILY /ONURSE TO REORDER/ multivitamin Tablet 1 tab PO DAILY acetaminophen 325 mg Tablet 325 mg PO QHS guaifenesin [Tussin Cough] 100 mg/5 mL Liquid 200 mg PO QHS PRN (Reason: Congestion) cyanocobalamin (vitamin B-12) 500 mcg Tablet 500 mcg PO DAILY aspirin 81 mg Tablet,Chewable 81 mg PO DAILY fluticasone propionate [Flonase] 50 mcg/actuation [place],Suspension 1 spray INTRANASAL DAILY PRN (Reason: ALLERGIES) Rx Instructions: administer into each nostril guaifenesin [Mucus Relief] 400 mg Tablet 400 mg PO TID PRN (Reason: Congestion) cholecalciferol (vitamin D3) 25 mcg (1,000 unit) Tablet 25 mcg PO DAILY melatonin 5 mg Tablet 10 mg PO QHS Primary Care Provider: Edin Cardenas Referrals: Edin Cardenas MD [Primary Care Provider] -
--- NOTE | 2022-08-04 15:08 | ED.RN ---
ADMISSION DX DOES NOT INCLUDE CVA; DR. CUELLAR TO OK TO COMPLETE NIH ASSESSMENTS. [facility] UNCHANGED FOR PAST SEVERAL ASSESSMENTS, CONTINUING TO SCORE 3.
[2022-08-04 15:27] LABS: Alcohol, Blood (Medical)-Serum < 3.0 mg/dL
--- NOTE | 2022-08-04 17:46 | HP.PCM.HOS_ITS ---
HPI - General General Date of Admission: 08/04/22 Date of Service: 08/04/22 Chief Complaint: Vertigo, dysarthria, right-sided facial droop, bilateral upper extremity ataxia HPI Narrative MACY BEY, is a 72 M who presented to the emergency department at [facility] on 08/04/2022 with multiple neurological complaints including vertigo, dysarthria, right-sided facial droop, and bilateral upper extremity ataxia. The patient reported that he woke up about 1 AM to take a shit he reported it came out explosively with 1 fart and he noticed that the room was spinning at that time. He went back to bed and when he woke up there was noted dysarthria, right-sided facial droop and bilateral upper extremity ataxia. This was noted by EMS when they arrived. By the time I evaluated the patient his symptoms had improved. He reported he was having some nausea that had proved since he received medication and that all of the other neurological deficits had resolved. He admits that he drinks alcohol still with his last beer being yesterday. He states that he drinks 2 tall boys daily. Given the fact that his last known well was unknown stroke team was not called. The patient does wear 2 L of oxygen at baseline. Upon presentation his temperature was 97, heart rate was 68, blood pressure was 164/86, respiratory was 14 and oxygen saturation was 85% on room air. As noted above the patient wears 2 L of oxygen at baseline and when he was placed on 2 L of oxygen his oxygen saturations improved between 90 and 93%. His CBC was unremarkable. Coags were normal. His chemistry panel was unremarkable other than a hyperglycemia with a glucose of 141. TSH was normal at 0.6 and his initial troponin was 10. His urine was consistent with infection and showed leukoesterase, white cells at greater than 100 per high-powered field and 3+ bacteria. His F alcohol level was normal. Chest x-ray showed bibasilar atelectasis. CT of the head showed chronic involutional and white matter changes with no intracranial acute process. CTA of the head and neck showed bilateral carotid atherosclerosis without evidence of significant stenosis or occlusion with no evidence of large vessel occlusion in the standing [place]. 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 All calcifications were less than 50%. [facility] Medical History (Updated 08/04/22 @ 17:[address] Renuka Carreno, DO) Alcohol abuse Ankle fracture, right Cataract COPD (chronic obstructive pulmonary disease) Elbow fracture, right HTN (hypertension) Retinal detachment Smoker Stroke Home Medications acetaminophen 325 mg tablet 325 mg PO QHS BACK PAIN 08/04/22 [History Last Taken 08/03/22] albuterol sulfate 90 mcg/actuation aerosol inhaler 2 puff inhalation Q4H PRN PRN Shortness Of Breath 08/04/22 [History Last Taken Unknown] amlodipine 10 mg tablet 10 mg PO DAILY BP 08/04/22 [History Last Taken 08/04/22] aspirin 81 mg chewable tablet 81 mg PO DAILY HEALTH 08/04/22 [History Last Taken 08/04/22] bimatoprost 0.01 % eye drops (Lumigan) 1 drp RIGHT EYE QHS 08/04/22 [History Last Taken 08/03/22] cholecalciferol (vitamin D3) 25 mcg (1,000 unit) tablet 25 mcg PO DAILY SUPPLEMENT 08/04/22 [History Last Taken 08/04/22] cyanocobalamin (vitamin B-12) 500 mcg tablet 500 mcg PO DAILY SUPPLEMENT 08/04/22 [History Last Taken 08/04/22] ergocalciferol (vitamin D2) 1,250 mcg (50,000 unit) capsule 1,250 mcg PO SA TRUONG PPLEMENT 08/04/22 [History Last Taken 08/03/22] fluticasone propionate 50 mcg/actuation nasal spray,suspension 1 spray intranasal DAILY PRN ALLERGIES 08/04/22 [History Last Taken Unknown] guaifenesin 100 mg/5 mL oral liquid 200 mg PO QHS PRN Congestion 08/04/22 [History Last Taken Unknown] guaifenesin 400 mg tablet (Mucus Relief) 400 mg PO TID PRN Congestion 08/04/22 [History Last Taken Unknown] hydroxyzine pamoate 50 mg capsule 50 mg PO TID ANXIETY 08/04/22 [History Last Taken 08/04/22] lisinopril 20 mg tablet 20 mg PO BID BP 08/04/22 [History Last Taken 08/04/22] loratadine 10 mg tablet 10 mg PO QHS ALLERGIES 08/04/22 [History Last Taken 08/03/22] melatonin 5 mg tablet 10 mg PO QHS SLEEP 08/04/22 [History Last Taken 08/03/22] metoprolol tartrate 25 mg tablet 12.5 mg PO BID BP 08/04/22 [History Last Taken 08/04/22] mirabegron 25 mg tablet,extended release 24 hr (Myrbetriq) 25 mg PO DAILY BLADDER 08/04/22 [History Last Taken 08/04/22] mirtazapine 30 mg tablet 30 mg PO QHS SLEEP 08/04/22 [History Last Taken 08/03/22] montelukast 10 mg tablet 10 mg PO QHS ALLERGIES 08/04/22 [History Last Taken 08/03/22] multivitamin 1 tab PO DAILY SUPPLEMENT 08/04/22 [History Last Taken 08/04/22] potassium chloride 10 mEq capsule,extended release 20 meq PO DAILY POTASSIUM 08/04/22 [History Last Taken 08/04/22] pravastatin 40 mg tablet 40 mg PO QHS CHOLESTEROL 08/04/22 [History Last Taken 08/03/22] tamsulosin 0.4 mg capsule 0.4 mg PO QHS PROSTATE 08/04/22 [History Last Taken 08/03/22] timolol maleate 0.5 % eye drops 1 drp RIGHT EYE BID 08/04/22 [History Last Taken 08/04/22] trazodone 100 mg tablet 100 mg PO QHS SLEEP 08/04/22 [History Last Taken 08/03/22] trazodone 50 mg tablet 25 mg PO QHS SLEEP 08/04/22 [History Last Taken 08/03/22] Allergy/AdvReac Type Severity Reaction Status Date / Time No Known Allergies Allergy Verified 03/04/21 22:52 unable to obtain no surgical history Social History (Updated 08/04/22 @ 17:[address] Renuka Carreno, DO) housing: group home Smoking Status: Current every day smoker tobacco type: cigarettes Smoking packs per day: 0.5 Smoking cigarettes per day: 10.0 alcohol intake: current details: Patient drinks 2 tall boys daily on a regular basis substance use type: does not use ROS Constitutional Constitutional: Denies anorexia, change in weight, chills, fatigue, fever(s), malaise, night sweats, weakness or other Eyes Eyes: Denies blurry vision, change in eye color, change in vision, discharge from eye(s), double vision, erythema, eye pain, loss of vision or other ENT HEENT: Denies abnormal hearing, dysphagia, ear pain, epistaxis, headache(s), hearing loss, nasal congestion, nasal discharge, post nasal drip, sinus pre ssure, sore throat or other Cardiovascular Cardiovascular: Denies chest pain, claudication, dyspnea on exertion, edema, lightheadedness, orthopnea, palpitations, paroxysmal nocturnal dyspnea, rapid heart rate, syncope or other Respiratory/Chest Respiratory/Chest: Denies cough, dyspnea, excessive phlegm production, hemoptysis, productive cough, shortness of breath at rest, shortness of breath with exertion, wheezing or other Gastrointestinal Gastrointestinal: Denies abdominal pain, coffee ground emesis, constipation, diarrhea, dyspepsia, hematemesis, hematochezia, loose stools, melena, nausea, vomiting or other Genitourinary Genitourinary: Reports burning urination, urinary frequency, urinary hesitancy and urinary urgency; Denies difficulty urinating, dysuria, hematuria, nocturia, urinary incontinence or other Musculoskeletal Musculoskeletal: Reports back pain; Denies arthralgias, joint pain, joint stiffness, joint swelling, myalgias, neck pain or other Neurologic Neurologic: Denies abnormal gait, abnormal speech, confusion, disequilibrium, dizziness, focal weakness, headache(s), numbness, paresthesias, seizure-like activity, seizures, syncope, tingling, tremor(s) or other Psychiatric Psychiatric: Reports depression; Denies anxiety, homicidal ideation, suicidal ideation or other Endocrine Endocrinology: Denies change in body appearance, cold intolerance, excessive sweating, heat intolerance, polydipsia, polyuria or other Hematologic/Lymphatic Hematologic/Lymphatic: Denies anemia, easy bleeding, easy bruising, lymphadenopathy or other Allergic/Immunologic Allergic/Immunologic: Denies rhinitis, hives, eczemia, asthma or other Vital Signs Vital Signs Vital Signs: 08/04/22 12:25 08/04/22 12:31 08/04/22 12:30 Temperature 97.0 F L Temperature Source Temporal Pulse Rate 668 H 68 Respiratory Rate 14 Blood Pressure 164/86 H 164/86 H Blood Pressure Mean 112 112 Blood Pressure Source Blood Pressure Position Blood Pressure Location Pulse Ox 93 85 85 Oxygen Delivery Method Room Air Room Air Room Air Oxygen Flow Rate (L/min) 08/04/22 12:39 08/04/22 13:00 08/04/22 13:00 Temperature Temperature Source Pulse Rate 65 65 Respiratory Rate 13 13 Blood Pressure 153/86 H 153/86 H Blood Pressure Mean 108 108 Blood Pressure Source Blood Pressure Position Blood Pressure Location Pulse Ox 92 92 92 Oxygen Delivery Method Nasal Cannula Nasal Cannula Nasal Cannula Oxygen Flow Rate (L/min) 2 2 2 08/04/22 13:23 08/04/22 13:30 08/04/22 14:00 Temperature Temperature Source Pulse Rate 63 67 77 Respiratory Rate 17 15 22 H Blood Pressure 164/91 H 161/93 H 157/86 H Blood Pressure Mean 115 115 109 Blood Pressure Source Blood Pressure Position Blood Pressure Location Pulse Ox 93 90 92 Oxygen Delivery Method Nasal Cannula Nasal Cannula Nasal Cannula Oxygen Flow Rate (L/min) 2 2 2 08/04/22 14:00 08/04/22 14:30 08/04/22 14:30 Temperature 97.0 F L Temperature Source Temporal Pulse Rate 77 85 85 Respiratory Rate 22 H 20 H 20 H Blood Pressure 157/86 H 170/144 H 170/144 H Blood Pressure Mean 109 152 152 Blood Pressure Source Blood Pressure Position Blood Pressure Location Pulse Ox 92 93 93 Oxygen Delivery Method Nasal Cannula Nasal Cannula Nasal Cannula Oxygen Flow Rate (L/min) 2 3 3 08/04/22 14:58 08/04/22 15:00 08/04/22 15:00 Temperature Temperature Source Pulse Rate 66 67 Respiratory Rate 15 17 Blood Pressure 160/106 H 160/106 H Blood Pressure Mean 124 124 Blood Pressure Source Blood Pressure Position Blood Pressure Location Pulse Ox 93 92 Oxygen Delivery Method Nasal Cannula Nasal Cannula Nasal Cannula Oxygen Flow Rate (L/min) 3 2 08/04/22 16:35 08/04/22 17:37 Temperature 97.7 F L Temperature Source Oral Pulse Rate 72 Respiratory Rate 16 Blood Pressure 169/82 H Blood Pressure Mean 104 Blood Pressure Source Monitor Blood Pressure Position Semi-Fowlers Blood Pressure Location Right Arm Pulse Ox 95 Oxygen Delivery Method Nasal Cannula Nasal Cannula Oxygen Flow Rate (L/min) 3 3 Weight Weight: 102.7 kg Body Mass Index (BMI) 32.5 Physical Exam Const alert, oriented x3, no apparent distress and well nourished Constitutional Narrative: Obese white male, sitting up in bed, appears comfortable nontoxic at this time, somewhat disheveled General Appearance: cooperative HEENT normocephalic, head/scalp atraumatic and moist oral mucous membranes HEENT Narrative: Mild to moderate hearing loss, poor dentition Eyes PERRL, EOMs intact bilaterally and conjunctivae normal Eyes Narrative: No scleral icterus Neck no lymphadenopathy, supple and no carotid bruits Neck Narrative: He midline, no thyroid enlargement, neck is short and thick Resp normal respiratory effort, no retractions and no use of accessory muscles Resp Narrative: Diffusely diminished but clear Auscultation: Negative for crackles, rhonchi or wheezes Cardio regular rate, regular rhythm, S1 normal heart sound, S2 normal heart sound, no murmurs, no rub, no gallops and no clicks GI normal to inspection, nondistended, normoactive bowel sounds, soft to palpation and non-tender Extremity no clubbing, cyanosis or edema Extremity Narrative: 2+ pedal pulses Skin no rashes or lesions noted, no wounds, skin turgor normal, no jaundice, no petechiae and no mottling Neuro oriented x3, CN's II-XII intact bilaterally, moves all extremities and no focal motor deficits Neuro Narrative: Speech is mildly slurred on my exam however patient feels that it is close to his baseline, patient with generalized weakness proximal greater than distal but no focal deficit on exam Psych Psych Narrative: Patient appears to be somewhat impulsive Results Lab / Micro Data Result Diagrams: 08/04/22 12:12 08/04/22 12:12 Labs: Laboratory Results - last 24 hr 08/04/22 12:12: WBC 10.3, RBC 5.15, Hgb 14.6, Hct 43.9, MCV 85.2, MCH 28.3, MCHC 33.3, RDW Std Deviation 44.0 H, RDW Coeff of Amira 14.3, Plt Count 327, MPV 9.6, Immature Gran % (Auto) 0.800, Neut % (Auto) 81.9 H, Lymph % (Auto) 14.8 L, [place] % (Auto) 2.1, Eos % (Auto) 0.0, Baso % (Auto) 0.4, Absolute Neuts (auto) 8.4 H, Absolute Lymphs (auto) 1.53, Nucleated RBC % 0 08/04/22 12:12: PT 13.1, INR 1.0, APTT 33.0 08/04/22 12:12: Sodium 136, Potassium 3.5, Chloride 101, Carbon Dioxide 23.0, Anion Gap 12, BUN 10, Creatinine 0.83, Estim Creat Clear Calc 84.29, Est GFR (MDRD) Af Amer 117, Est GFR (MDRD) Non-Af 97, BUN/Creatinine Ratio 12.0, Glucose 141 H, Calcium 9.1, Troponin I High Sens 10 08/04/22 12:12: TSH 0.60 08/04/22 12:49: Urine Color Yellow, Urine Clarity Cloudy, Urine pH 6.5, Ur Specific Preemption 1.015, Urine Protein 100 H, Urine Glucose (UA) Normal, Urine Ketones 150 A*, Urine Occult Blood 25 H, Urine Nitrite Negative, Urine Bilirubin Negative, Urine Urobilinogen Normal, Ur Leukocyte Esterase 500 H, Urine RBC 0-5 SEEN, Urine WBC >100 SEEN, Ur Squamous Epith Cells 0-5 SEEN, Urine Bacteria 3+, Urine Mucus 0 SEEN 08/04/22 14:30: Ethyl Alcohol < 3.0 Radiology Impression Head/Neck CTA 08/04/22 12:20 IMPRESSION: Bilateral carotid atherosclerosis without evidence for significant stenosis or occlusion in the carotid or vertebral arteries of the neck. No evidence for large vessel occlusion the [place] region. 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 Electronically Signed: Olga Champagne MD at 12:56 EST , ADDENDUM: 08/04/22 1310 IMPRESSION: Bilateral carotid atherosclerosis without evidence for significant stenosis or occlusion in the carotid or vertebral arteries of the neck. No evidence for large vessel occlusion the standing [place] region. 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 N.B. : The above Results were Read Back by Olga Champagne MD to Sven Martinez MD, and understanding confirmed on 08/04/2022 13:04:44 (ET). Electronically Signed: Olga Champagne MD at 12:56 EST , Brain CT 08/04/22 12:25 IMPRESSION: No acute intracranial process identified. Chronic involutional and white matter changes. Electronically Signed: Olga Champagne MD at 12:45 EST , ADDENDUM: 08/04/22 1253 IMPRESSION: No acute intracranial process identified. Chronic involutional and white matter changes. N.B. : The above Results were Read Back by Olga Champagne MD to Sven Martinez MD, and understanding confirmed on 08/04/2022 12:46:23 (ET). Electronically Signed: Olga Champagne MD at 12:45 EST , Chest X-Ray 08/04/22 12:25 IMPRESSION: Mild bibasilar atelectasis or inflammation. Electronically Signed: Olga Champagne MD at 13:32 EST , Assessment & Plan Assessment/Plan (1) Weakness generalized: (2) Dysarthria: (3) Facial droop: (4) Ataxia of upper extremity: (5) UTI (urinary tract infection): PLAN: Plan Dysarthria/right-sided facial droop/bilateral upper extremity ataxia -CT of the brain unremarkable -CTA of the head and neck without any obstructing lesions or stenosis however he did have bilateral internal carotid stenosis less than 50% -MRI pending -Echo pending -Start aspirin -Check hemoglobin A1c -Check lipids -Continue home pravastatin at 40 mg nightly -If any abnormalities on MRI would initiate Plavix Urinary tract infection -UA is highly consistent with infection -Culture pending -Continue ceftriaxone initiated emergency department 1 g every 24 Glaucoma -Continue eyedrops BPH -Continue Flomax History of stroke -Continue aspirin Vitamin D deficiency -Restart vitamin D supplementation at discharge COPD with ongoing tobacco abuse -Recommend cessation -Patient denies need for nicotine replacement therapy -As needed nebulizers -Continue home guaifenesin Hypertension/hyperlipidemia -Continue home lisinopril -Continue home metoprolol -Continue home amlodipine -Continue home statin -Check lipids Depression -Continue home hydroxyzine -Continue home mirtazapine -Continue home trazodone Glaucoma -Continue home eyedrops Alcohol abuse -Patient is currently drinking only 2 tall boys a day -I suspect risk of withdrawal is low -Monitor clinically DVT prophylaxis -Lovenox -SCDs CODE STATUS -Full code Charges/Coding Visit Charges Inpatient E&M: 99792 Init Hosp L3
[2022-08-04] MEDS: Timolol 0.5% 5ML OPTH.BTL 1 DRP RIGHT EYE (20:57)
[2022-08-04] MEDS: Latanoprost 0.005% 1 Bottle 1 DRP RIGHT EYE (20:57)
[2022-08-04] MEDS: Acetaminophen 500 MG Tablet 1000 MG PO (20:58)
[2022-08-04] MEDS: hydrOXYzine PAM 25 MG Capsule 50 MG PO (20:58)
[2022-08-04] MEDS: Mirtazapine 30 MG Tablet PO (20:59)
[2022-08-04] MEDS: Tamsulosin HCl 0.4 MG Capsule PO (20:59)
[2022-08-04] MEDS: MELATONIN 10 MG TABLET PO (20:59)
[2022-08-04] MEDS: Pravastatin 40 MG Tablet PO (20:59)
[2022-08-04] MEDS: traZODone 100 MG Tablet PO (21:00)
[2022-08-04] MEDS: traZODone 50 MG Tablet 25 MG PO (21:00)
[2022-08-04] MEDS: Montelukast 10 MG Tablet PO (21:00)
[2022-08-04] MEDS: Loratadine 10 MG Tablet PO (21:01)
[2022-08-05] VITALS (18 sets, daily range): BP systolic 144–168; BP diastolic 75–106; PULSE 53–99; RESP 16–18; TEMP 36.4–36.7; O2SAT 89–96; BMI 32.5
[2022-08-05] MEDS: hydrOXYzine PAM 25 MG Capsule 50 MG PO ×3 (05:05→22:53)
[2022-08-05] MEDS: Acetaminophen 500 MG Tablet 1000 MG PO ×3 (05:06→22:53)
--- NOTE | 2022-08-05 05:55 | ECHOD_ITS ---
Reason For Study: TIA/Stroke Procedure This was a 2D Doppler, Color Flow transthoracic echocardiogram. Exam performed portable in patient room. Left Ventricle Normal LV size. Moderate concentric left ventricular hypertrophy. Left ventricular systolic function is normal. The estimated ejection fraction is 65 %. No regional wall motion abnormalities noted. Right Ventricle Normal RV size. Normal systolic function. Atria Normal left atrium. Normal right atrium. Bubble contrast study negative for right to left interatrial shunt. Mitral Valve Normal mitral valve. Tricuspid Valve Normal tricuspid valve. Aortic Valve The aortic valve is not well visualized. Pulmonic Valve Normal pulmonic valve. Great Vessels Normal aortic root. The pulmonary artery is normal size. Normal inferior vena cava. Pericardium/Pleural No pericardial effusion. Medication Performed a rapid injection of agitated mix of 9 cc saline and 1cc air to assess for atrial septal defect. MMode/2D Measurements & Calculations LVIDd: 4.1 cm IVSd: 1.5 cm Ao root diam: 3.3 cm LVIDs: 2.5 cm LVPWd: 1.4 cm RVDd: 3.3 cm FS: 39.8 % LAV(MOD-bp): 40.2 ml LVAd ap4: 25.1 cm2 SV(MOD-sp4): 46.1 ml LAV(MOD-bp) Indexed: 18.3 ml/m2 LVLd ap4: 7.6 cm LAV(MOD-sp2): 38.2 ml EDV(MOD-sp4): 67.8 ml LAV(MOD-sp4): 38.7 ml EDV(sp4-el): 70.4 ml LVAs ap4: 12.4 cm2 LVLs ap4: 6.0 cm ESV(MOD-sp4): 21.8 ml ESV(sp4-el): 21.9 ml EF(MOD-sp4): 67.9 % EF(sp4-el): 68.9 % SV(sp4-el): 48.5 ml LA A4 area: 16.5 cm2 LA dimension(2D): 4.1 cm RA A4 area: 12.1 cm2 Doppler Measurements & Calculations MV E max cecil: 71.6 cm/sec Lat Peak E' Cecil: 8.4 cm/sec Med Peak E' Cecil: 10.2 cm/sec MV A max cecil: 87.8 cm/sec E/E' lat: 8.5 E/E' med: 7.1 MV E/A: 0.82 Ao V2 max: 136.2 cm/sec LV V1 max: 108.6 cm/sec PA V2 max: 153.0 cm/sec Ao max P.4 mmHg LV V1 max P.7 mmHg Ao V2 mean: 99.2 cm/sec Ao mean P.2 mmHg Ao V2 VTI: 26.6 cm ECHO/Echo Complete Interpretation Summary Normal LV size. Moderate concentric left ventricular hypertrophy. Left ventricular systolic function is normal. The estimated ejection fraction is 65 %. Bubble contrast study negative for right to left interatrial shunt. Ordering Physician: Renuka Carreno Referring Physician: Edin Cardenas Performed By: Meseret Velázquez, SHEA, RVT
[2022-08-05 06:25] LABS: Absolute Lymphocyte Count 2.73 X10^3/uL (0.83-4.51); Absolute Neutrophil Count 7.9 X10^3/uL (2.0-7.7); Basophil# 0.05 X10^3/uL; Basophil% 0.4 % (0-1); Eosinophil# 0.15 X10^3/uL; Eosinophils% 1.3 % (0-5); Hematocrit 45.3 % (40-54); Lymphocyte # 2.73 X10^3/ul (0.83-4.51); Mean Corp Hgb Conc 33.1 g/dL (32-36); Mean Corpuscular Hgb 28.6 pg (27.0-32.0); Mean Corpuscular Volume 86.5 fL (80-94); Mean Platelet Vol. 9.7 fl (6.2-12.0); Monocyte# 1.06 X10^3/uL; Monocyte% 8.9 % (0-10); NRBC Flagged by Analyzer 0 % (0-5); Neutrophil # 7.85 X10^3/uL (2.7-7.7); Neutrophil % 66.1 % (47-70); Platelet Count 290 K/mm3 (150-450); RBC Distribution Width CV 14.6 % (11.6-14.6); RBC Distribution Width SD 46.3 fl (35.1-43.9); Red Blood Count 5.24 M/mm3 (4.6-6.2); White Blood Count 11.9 K/mm3 (4.4-11.0)
[2022-08-05 06:58] LABS: ALB/GLOB Ratio 0.7 RATIO (0.9-2.4); AST(SGOT) 13 U/L (15-37); Alanine Aminotransfer ALT/SGPT 23 U/L (16-61); Albumin, Serum 3.1 g/dL (3.2-5.0); Alkaline Phosphatase 97 U/L (45-117); Anion Gap 5 (5-15); BUN 7 mg/dL (7-18); BUN/Creat Ratio 9.2 RATIO (10-20); Calcium,Total 9.1 mg/dL (8.5-10.1); Chloride 104 mmol/L (98-107); Cholesterol 137 mg/dL (200); Creatinine, Serum 0.76 mg/dL (0.70-1.30); EST Glomerular Filtration Rate 107 mL/min (>60); Est Glom Filt Rate - Afr Amer 129 mL/min (>60); Estimated Creatinine Clearance 69.96 ml/min; Globulin 4.2 g/dL (2.2-4.2); Glucose 119 mg/dL (74-106); High Density Lipoprotein 62 mg/dL; Phosphorus 3.2 mg/dL (2.5-4.9); Potassium 2.8 mmol/L (3.5-5.1); Protein, Total 7.3 g/dL (6.4-8.2); Sodium Level 138 mmol/L (136-145); Triglycerides 107 mg/dL; Very Low Density Lipoprotein 21 mg/dL (5-40)
--- NOTE | 2022-08-05 08:18 | PCM.PN.HOSP ---
Subjective Subjective Feels that his symptoms have significantly improved if not resolved entirely, denying other complaints at this time Objective Data Objective Data Vital Signs: Vital Signs Temp Pulse Resp BP Pulse Ox O2 Del Method O2 Flow Rate 97.8 F 73 16 168/92 H 96 CPAP 2 08/05/22 04:45 08/05/22 06:32 08/05/22 04:45 08/05/22 04:45 08/05/22 04:45 08/05/22 04:45 08/05/22 00:45 FiO2 40 08/05/22 04:45 Oxygen Flow Rate (L/min) 2 Oxygen Delivery Method CPAP Weight: 102.7 kg Body Mass Index (BMI) 32.5 Intake & Output: Intake and Output for Last 24 Hours 08/03/22 08/04/22 08/05/22 23:59 23:59 23:59 Intake Total 290 / 530 240 / 240 Output Total 650 / 1100 650 / 650 Balance -360 / -570 -410 / -410 Lab / Micro Data Result Diagrams: 08/05/22 05:27 08/05/22 05:27 Labs: Laboratory Results - last 24 hr 08/04/22 12:12: WBC 10.3, RBC 5.15, Hgb 14.6, Hct 43.9, MCV 85.2, MCH 28.3, MCHC 33.3, RDW Std Deviation 44.0 H, RDW Coeff of Amira 14.3, Plt Count 327, MPV 9.6, Immature Gran % (Auto) 0.800, Neut % (Auto) 81.9 H, Lymph % (Auto) 14.8 L, [place] % (Auto) 2.1, Eos % (Auto) 0.0, Baso % (Auto) 0.4, Absolute Neuts (auto) 8.4 H, Absolute Lymphs (auto) 1.53, Nucleated RBC % 0 08/04/22 12:12: PT 13.1, INR 1.0, APTT 33.0 08/04/22 12:12: Sodium 136, Potassium 3.5, Chloride 101, Carbon Dioxide 23.0, Anion Gap 12, BUN 10, Creatinine 0.83, Estim Creat Clear Calc 84.29, Est GFR (MDRD) Af Amer 117, Est GFR (MDRD) Non-Af 97, BUN/Creatinine Ratio 12.0, Glucose 141 H, Calcium 9.1, Troponin I High Sens 10 08/04/22 12:12: TSH 0.60 08/04/22 12:49: Urine Color Yellow, Urine Clarity Cloudy, Urine pH 6.5, Ur Specific [place] 1.015, Urine Protein 100 H, Urine Glucose (UA) Normal, Urine Ketones 150 A*, Urine Occult Blood 25 H, Urine Nitrite Negative, Urine Bilirubin Negative, Urine Urobilinogen Normal, Ur Leukocyte Esterase 500 H, Urine RBC 0-5 SEEN, Urine WBC >100 SEEN, Ur Squamous Epith Cells 0-5 SEEN, Urine Bacteria 3+, Urine Mucus 0 SEEN 08/04/22 14:30: Ethyl Alcohol < 3.0 08/05/22 05:27: WBC 11.9 H, RBC 5.24, Hgb 15.0, Hct 45.3, MCV 86.5, MCH 28.6, MCHC 33.1, RDW Std Deviation 46.3 H, RDW Coeff of Amira 14.6, Plt Count 290, MPV 9.7, Immature Gran % (Auto) 0.300, Neut % (Auto) 66.1, Lymph % (Auto) 23.0, [place] % (Auto) 8.9, Eos % (Auto) 1.3, Baso % (Auto) 0.4, Absolute Neuts (auto) 7.9 H, Absolute Lymphs (auto) 2.73, Nucleated RBC % 0 08/05/22 05:27: Sodium 138, Potassium 2.8 L, Chloride 104, Carbon Dioxide 29.0, Anion Gap 5, BUN 7, Creatinine 0.76, Estim Creat Clear Calc 69.96, Est GFR (MDRD) Af Amer 129, Est GFR (MDRD) Non-Af 107, BUN/Creatinine Ratio 9.2 L, Glucose 119 H, Calcium 9.1, Phosphorus 3.2, Magnesium 2.0, Total Bilirubin 0.40, AST 13 L, ALT 23, Alkaline Phosphatase 97, Total Protein 7.3, Albumin 3.1 L, Globulin 4.2, Albumin/Globulin Ratio 0.7 L, Triglycerides 107, Cholesterol 137, LDL Cholesterol 54, VLDL Cholesterol 21, HDL Cholesterol 62 Radiography Diagnostic Testing: Radiology Impression Head/Neck CTA 08/04/22 12:20 IMPRESSION: Bilateral carotid atherosclerosis without evidence for significant stenosis or occlusion in the carotid or vertebral arteries of the neck. No evidence for large vessel occlusion the [place] region. 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 Electronically Signed: Olga Champagne MD at 12:56 EST , ADDENDUM: 08/04/22 1310 IMPRESSION: Bilateral carotid atherosclerosis without evidence for significant stenosis or occlusion in the carotid or vertebral arteries of the neck. No evidence for large vessel occlusion the [place] region. 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 N.B. : The above Results were Read Back by Olga Champagne MD to Sven Martinez MD, and understanding confirmed on 08/04/2022 13:04:44 (ET). Electronically Signed: Olga Champagne MD at 12:56 EST , Brain CT 08/04/22 12:25 IMPRESSION: No acute intracranial process identified. Chronic involutional and white matter changes. Electronically Signed: Olga Champagne MD at 12:45 EST , ADDENDUM: 08/04/22 1253 IMPRESSION: No acute intracranial process identified. Chronic involutional and white matter changes. N.B. : The above Results were Read Back by Olga Champagne MD to Sven Martinez MD, and understanding confirmed on 08/04/2022 12:46:23 (ET). Electronically Signed: Olga Champagne MD at 12:45 EST , Chest X-Ray 08/04/22 12:25 IMPRESSION: Mild bibasilar atelectasis or inflammation. Electronically Signed: Olga Champagne MD at 13:32 EST , Physical Exam Const alert and no apparent distress HEENT normocephalic and head/scalp atraumatic Eyes Eyes Narrative: EOM grossly intact, anicteric Neck supple Resp normal respiratory effort and clear to auscultation bilaterally Cardio regular rate and regular rhythm GI soft to palpation, non-tender and non-distended Extremity Extremity Narrative: No edema appreciated Neuro moves all extremities Neuro Narrative: Cranial nerves II through XII intact, several beats of nystagmus on far lateral gaze bilaterally, finger-nose without significant difficulty, no significant discrepancy in pupil size Psych Psych Narrative: Overall cooperative Assessment & Plan Assessment/Plan (1) Dysarthria: (2) Facial droop: (3) Ataxia of upper extremity: (4) UTI (urinary tract infection): PLAN: Plan #Vertigo, dysarthria, right-sided facial droop, bilateral upper extremity ataxia Symptoms had been observed by EMS but had improved in ED by the time of evaluation CT of the head with chronic changes, CTA of the head and neck showed bilateral carotid atherosclerosis with no significant stenosis or occlusion Aspirin, statin MRI no acute change PT/OT Echo with EF of 65% and negative bubble study but does have some moderate concentric left ventricular hypertrophy #UTI 3+ bacteria and elevated leukoesterase Urine culture pending Rocephin initiated #Chronic hypoxic respiratory failure secondary to COPD with ongoing tobacco abuse Wears 2 L of O2 at baseline As needed nebulizers #Alcohol use Alcohol level normal on arrival, last drink day prior to admission, drinks 2 tall boys daily Risk of withdrawal below #Glaucoma Eyedrops #BPH Flomax #Hypertension Continue home medications #MDD Continue trazodone, mirtazapine, hydroxyzine #DVT ppx: SCDs and Lovenox Carmen Hayes MD Charges/Coding Visit Charges Inpatient E&M: 65474 Subs Hosp L2
--- NOTE | 2022-08-05 09:00 | MRI_ITS ---
EXAM: MR HEAD WITHOUT INTRAVENOUS CONTRAST CLINICAL INDICATION: Stroke. TECHNIQUE: Multiplanar and multisequence MR images of the brain were obtained without intravenous contrast. This report was created using [employer] report generation technology. COMPARISON: CT head and CTA head with contrast 08/04/2022. FINDINGS: BRAIN AND EXTRA-AXIAL SPACES: No diffusion restriction to suspect acute or subacute ischemic infarct. T2 FLAIR hyperintensity foci in the periventricular white matter are chronic white matter ischemic changes. No intra- or extra-axial hemorrhage. No intracranial mass or mass effect. Posterior fossa structures are unremarkable. No hydrocephalus. Basal cisterns are patent. SELLA: Unremarkable. Normal sella turcica, pituitary gland, infundibular stalk, optic chiasm and hypothalamus. AUDITORY SYSTEM: Unremarkable. The internal auditory canals are patent. BONES/JOINTS: Unremarkable. No discrete lytic or blastic abnormalities. SINUSES: Unremarkable as visualized. Clear. MASTOID AIR CELLS: Unremarkable as visualized. Clear. ORBITS: Unremarkable as visualized. Both globes, extraocular muscles, optic nerves and retrobulbar fat appear unremarkable. VASCULATURE: Unremarkable as visualized. Normal flow voids in the major intracranial circulation. MRI/Brain without Contrast IMPRESSION: 1. No acute or subacute findings in the head/brain. 2. Chronic periventricular white matter ischemic changes in both cerebral hemispheres. Electronically Signed: True Guevara MD at 10:55 EST ,
[2022-08-05] MEDS: LORazepam 2 MG/ML Syringe 0.5 MG IV (09:26)
[2022-08-05] MEDS: Potassium Chloride Oral Tablet 10 MEQ 20 MEQ PO (09:28)
[2022-08-05] MEDS: Cyanocobalamin 500 MCG Tablet PO (09:28)
[2022-08-05] MEDS: Mirabegron 25 MG TAB.ER.24H PO (09:28)
[2022-08-05] MEDS: FLU VACC QS2022-23(6MOS UP)/PF 60 MCG/0.5 ML SYRINGE IM (09:28)
[2022-08-05] MEDS: Aspirin 81 MG TAB.CHEW PO (09:28)
[2022-08-05] MEDS: Enoxaparin 40 MG/0.4 ML Syringe SC (09:29)
[2022-08-05] MEDS: Timolol 0.5% 5ML OPTH.BTL 1 DRP RIGHT EYE (09:30)
[2022-08-05] MEDS: Ceftriaxone 1 GM/50 ML BAG IV (09:30)
--- NOTE | 2022-08-05 11:31 | CASEMGMT ---
Patient is from [facility]. SW sent updates to [facility]. Await PT/OT chau to assist with determining safe d/c plan. Barbi Wu SERVICE SPRINKLER HELPER KERVIN
[2022-08-05] MEDS: Potassium Chloride Oral Tablet 20 MEQ 60 MEQ PO (11:40)
--- NOTE | 2022-08-05 11:59 | CASEMGMT ---
JIM received a call from Deonna at [facility]. She asked if patient was going to be discharged today. JIM let Deonna know JIM is not sure as physician has not rounded yet. JIM will let her know when JIM knows more. Barbi Wu MSW KERVIN
[2022-08-05] MEDS: amLODIPine 10 MG Tablet PO (13:42)
[2022-08-05] MEDS: Lisinopril 20 MG Tablet PO ×2 (13:42→22:54)
[2022-08-05] MEDS: Metoprolol Tartrate 25 MG Tablet 12.5 MG PO ×2 (13:42→22:48)
[2022-08-05] MEDS: Latanoprost 0.005% 1 Bottle 1 DRP RIGHT EYE (22:44)
[2022-08-05] MEDS: traZODone 100 MG Tablet PO (22:45)
[2022-08-05] MEDS: traZODone 50 MG Tablet 25 MG PO (22:45)
[2022-08-05] MEDS: Tamsulosin HCl 0.4 MG Capsule PO (22:46)
[2022-08-05] MEDS: MELATONIN 10 MG TABLET PO (22:47)
[2022-08-05] MEDS: Montelukast 10 MG Tablet PO (22:47)
[2022-08-05] MEDS: Loratadine 10 MG Tablet PO (22:48)
[2022-08-05] MEDS: Mirtazapine 30 MG Tablet PO (22:50)
[2022-08-05] MEDS: Pravastatin 40 MG Tablet PO (22:50)
--- NOTE | 2022-08-05 23:30 | CPS ---
PT refused CPAP for tonight
[2022-08-06] VITALS (10 sets, daily range): BP systolic 120–155; BP diastolic 87–111; PULSE 62–92; RESP 14–18; TEMP 36.5–37.1; O2SAT 92–94; BMI 32.5
[2022-08-06 05:02] LABS: Absolute Lymphocyte Count 2.85 X10^3/uL (0.83-4.51); Absolute Neutrophil Count 6.6 X10^3/uL (2.0-7.7); Basophil% 0.9 % (0-1); Eosinophils% 2.8 % (0-5); Hematocrit 45.9 % (40-54); Hemoglobin 14.7 g/dL (13.0-16.5); Lymphocyte # 2.85 X10^3/ul (0.83-4.51); Lymphocyte % 26.4 % (19-41); Mean Corpuscular Hgb 27.9 pg (27.0-32.0); Mean Corpuscular Volume 87.3 fL (80-94); Mean Platelet Vol. 9.5 fl (6.2-12.0); Monocyte# 0.93 X10^3/uL; Monocyte% 8.6 % (0-10); NRBC Flagged by Analyzer 0 % (0-5); Neutrophil # 6.59 X10^3/uL (2.7-7.7); Platelet Count 294 K/mm3 (150-450); RBC Distribution Width CV 14.7 % (11.6-14.6); RBC Distribution Width SD 47.2 fl (35.1-43.9); Red Blood Count 5.26 M/mm3 (4.6-6.2); White Blood Count 10.8 K/mm3 (4.4-11.0)
[2022-08-06 05:30] LABS: ALB/GLOB Ratio 0.7 RATIO (0.9-2.4); AST(SGOT) 10 U/L (15-37); Alanine Aminotransfer ALT/SGPT 25 U/L (16-61); Albumin, Serum 2.8 g/dL (3.2-5.0); Alkaline Phosphatase 86 U/L (45-117); Anion Gap 7 (5-15); BUN 13 mg/dL (7-18); BUN/Creat Ratio 16.1 RATIO (10-20); Calcium,Total 8.8 mg/dL (8.5-10.1); Chloride 106 mmol/L (98-107); Creatinine, Serum 0.81 mg/dL (0.70-1.30); EST Glomerular Filtration Rate 100 mL/min (>60); Est Glom Filt Rate - Afr Amer 121 mL/min (>60); Estimated Creatinine Clearance 86.37 ml/min; Glucose 119 mg/dL (74-106); Potassium 3.5 mmol/L (3.5-5.1); Protein, Total 6.8 g/dL (6.4-8.2); Sodium Level 140 mmol/L (136-145)
[2022-08-06] MEDS: hydrOXYzine PAM 25 MG Capsule 50 MG PO ×3 (06:06→20:47)
[2022-08-06] MEDS: Acetaminophen 500 MG Tablet 1000 MG PO ×3 (06:06→20:48)
--- NOTE | 2022-08-06 08:45 | CASEMGMT ---
JIM faxed PT,OT, and ST Evaluations to [facility]. Barbi Wu STREET FLUSHER DRIVER KERVIN
--- NOTE | 2022-08-06 09:05 | CASEMGMT ---
JIM received a call from Deonna at [facility]. She said patient is okay to return when ready. Deonna did let JIM know patient is not normally on O2 so that would need set up. JIM asked about home health. Deonna said this would just need to be put in d/c instructions and they would set it up as they have a company that they use normally. Patient also uses [facility]. Plan: d/c back to [facility] Diony Espino LASTING MACHINE OPERATOR HAND METHODKenny GALEANA
[2022-08-06] MEDS: Ceftriaxone 1 GM/50 ML BAG IV (11:02)
[2022-08-06] MEDS: Timolol 0.5% 5ML OPTH.BTL 1 DRP RIGHT EYE ×2 (11:03→20:59)
[2022-08-06] MEDS: Enoxaparin 40 MG/0.4 ML Syringe SC (11:17)
[2022-08-06] MEDS: Potassium Chloride Oral Tablet 10 MEQ 20 MEQ PO (11:17)
[2022-08-06] MEDS: Mirabegron 25 MG TAB.ER.24H PO (11:18)
[2022-08-06] MEDS: amLODIPine 10 MG Tablet PO (11:18)
[2022-08-06] MEDS: Cyanocobalamin 500 MCG Tablet PO (11:21)
[2022-08-06] MEDS: Metoprolol Tartrate 25 MG Tablet 12.5 MG PO ×2 (11:21→20:50)
[2022-08-06] MEDS: Lisinopril 20 MG Tablet PO ×2 (11:21→20:50)
[2022-08-06] MEDS: Aspirin 81 MG TAB.CHEW PO (11:22)
--- NOTE | 2022-08-06 12:12 | TELEMED_ITS ---
[facility] has confirmed receipt of a request for visit. This document confirms receipt of the order initiating the consult. To find the results of the consultation, please view the patient's reports for the scanned Telemed Consult.
--- NOTE | 2022-08-06 13:34 | CASEMGMT ---
JIM called [facility] and let them know patient will not be returning today. Barbi Wu COVERED BUTTON MAKER KERVIN
--- NOTE | 2022-08-06 14:27 | PCM.PN.HOSP ---
Subjective Subjective Reports symptoms resolved today, O2 being weaned, overall feeling better Objective Data Objective Data Vital Signs: Vital Signs Temp Pulse Resp BP Pulse Ox O2 Del Method O2 Flow Rate 98.7 F 92 17 139/111 H 93 Nasal Cannula 2 08/06/22 11:13 08/06/22 11:21 08/06/22 11:13 08/06/22 11:21 08/06/22 11:13 08/06/22 11:13 08/06/22 13:45 FiO2 40 08/05/22 04:45 Oxygen Flow Rate (L/min) 2 Oxygen Delivery Method Nasal Cannula Weight: 102.7 kg Body Mass Index (BMI) 32.5 Intake & Output: Intake and Output for Last 24 Hours 08/04/22 08/05/22 08/06/22 23:59 23:59 23:59 Intake Total 290 / 530 1090 / 1090 470 / 470 Output Total 650 / 1100 1500 / 1500 1250 / 1250 Balance -360 / -570 -410 / -410 -780 / -780 Lab / Micro Data Result Diagrams: 08/06/22 04:39 08/06/22 04:39 Labs: Laboratory Results - last 24 hr 08/06/22 04:39: WBC 10.8, RBC 5.26, Hgb 14.7, Hct 45.9, MCV 87.3, MCH 27.9, MCHC 32.0, RDW Std Deviation 47.2 H, RDW Coeff of Amira 14.7 H, Plt Count 294, MPV 9.5, Immature Gran % (Auto) 0.300, Neut % (Auto) 61.0, Lymph % (Auto) 26.4, [place] % (Auto) 8.6, Eos % (Auto) 2.8, Baso % (Auto) 0.9, Absolute Neuts (auto) 6.6, Absolute Lymphs (auto) 2.85, Nucleated RBC % 0 08/06/22 04:39: Sodium 140, Potassium 3.5, Chloride 106, Carbon Dioxide 27.0, Anion Gap 7, BUN 13, Creatinine 0.81, Estim Creat Clear Calc 86.37, Est GFR (MDRD) Af Amer 121, Est GFR (MDRD) Non-Af 100, BUN/Creatinine Ratio 16.1, Glucose 119 H, Calcium 8.8, Total Bilirubin 0.30, AST 10 L, ALT 25, Alkaline Phosphatase 86, Total Protein 6.8, Albumin 2.8 L, Globulin 4.0, Albumin/Globulin Ratio 0.7 L Micro: Microbiology 08/06/22 12:31 Nasal Secretion SARS-CoV-2 & FLU Antigen (Rapid) - Final 08/04/22 14:10 Urine, Clean Catch Urine Culture - Final Mixed Gram Positive Organisms Physical Exam Const alert and no apparent distress HEENT normocephalic and head/scalp atraumatic Eyes Eyes Narrative: EOM grossly intact, anicteric Neck supple Resp normal respiratory effort and clear to auscultation bilaterally Cardio regular rate and regular rhythm GI soft to palpation, non-tender and non-distended Extremity Extremity Narrative: No edema appreciated Neuro moves all extremities Neuro Narrative: No deficits of stated today, bilateral upper extremity strength 5 out of 5 and symmetric Psych Psych Narrative: cooperative Assessment & Plan Assessment/Plan (1) Dysarthria: (2) Facial droop: (3) Ataxia of upper extremity: (4) UTI (urinary tract infection): PLAN: Plan #Acute CVA Symptoms had been observed by EMS. In the ED he had improved and stroke call had not been called CT of the head with chronic changes and CTA head and neck with moderate but no severe stenosis He was started on aspirin, statin, PT/OT was ordered Echo with EF of 65% and negative bubble study but does have some moderate concentric left ventricular hypertrophy MRI initially read as no stroke however neurology was consulted due to to the concerning history and upon their evaluation they did observe a stroke on the MRI Given CTA as well they recommended aspirin and Plavix for 90 days as well as high intensity statin PT/OT/speech Event monitor on discharge #UTI 3+ bacteria and elevated leukoesterase Urine culture pending Rocephin initiated #Chronic hypoxic respiratory failure secondary to COPD with ongoing tobacco abuse Wears 2 L of O2 at baseline As needed nebulizers #Alcohol use Alcohol level normal on arrival, last drink day prior to admission, drinks 2 tall boys daily Risk of withdrawal low #Glaucoma Eyedrops #BPH Flomax #Hypertension Continue home medications #MDD Continue trazodone, mirtazapine, hydroxyzine #DVT ppx: SCDs and Lovenox Carmen Hayes MD Charges/Coding Visit Charges Inpatient E&M: 14061 Subs Hosp L2
[2022-08-06] MEDS: Clopidogrel Bisulfate 75 MG Tablet PO (18:50)
[2022-08-06] MEDS: Latanoprost 0.005% 1 Bottle 1 DRP RIGHT EYE (20:47)
[2022-08-06] MEDS: Loratadine 10 MG Tablet PO (20:49)
[2022-08-06] MEDS: Montelukast 10 MG Tablet PO (20:50)
[2022-08-06] MEDS: Mirtazapine 30 MG Tablet PO (20:50)
[2022-08-06] MEDS: MELATONIN 10 MG TABLET PO (20:52)
[2022-08-06] MEDS: traZODone 50 MG Tablet 25 MG PO (20:52)
[2022-08-06] MEDS: Tamsulosin HCl 0.4 MG Capsule PO (20:53)
[2022-08-06] MEDS: traZODone 100 MG Tablet PO (20:53)
[2022-08-06] MEDS: Atorvastatin Calcium 80 MG Tablet PO (20:58)
[2022-08-07] VITALS (10 sets, daily range): BP systolic 113–158; BP diastolic 77–106; PULSE 57–77; RESP 18–20; TEMP 36.4–37.2; O2SAT 90–97
[2022-08-07] MEDS: hydrOXYzine PAM 25 MG Capsule 50 MG PO ×3 (05:44→22:14)
[2022-08-07] MEDS: Acetaminophen 500 MG Tablet 1000 MG PO ×3 (05:44→22:14)
[2022-08-07 06:43] LABS: Absolute Lymphocyte Count 2.63 X10^3/uL (0.83-4.51); Absolute Neutrophil Count 5.4 X10^3/uL (2.0-7.7); Basophil# 0.09 X10^3/uL; Eosinophil# 0.28 X10^3/uL; Hematocrit 45.4 % (40-54); Hemoglobin 14.9 g/dL (13.0-16.5); Lymphocyte # 2.63 X10^3/ul (0.83-4.51); Lymphocyte % 28.5 % (19-41); Mean Corp Hgb Conc 32.8 g/dL (32-36); Mean Corpuscular Hgb 28.5 pg (27.0-32.0); Mean Platelet Vol. 9.6 fl (6.2-12.0); Monocyte# 0.85 X10^3/uL; Monocyte% 9.2 % (0-10); NRBC Flagged by Analyzer 0 % (0-5); Neutrophil # 5.36 X10^3/uL (2.7-7.7); Neutrophil % 58.1 % (47-70); Platelet Count 294 K/mm3 (150-450); RBC Distribution Width CV 14.7 % (11.6-14.6); RBC Distribution Width SD 47.5 fl (35.1-43.9); Red Blood Count 5.22 M/mm3 (4.6-6.2); White Blood Count 9.2 K/mm3 (4.4-11.0)
[2022-08-07 07:07] LABS: ALB/GLOB Ratio 0.8 RATIO (0.9-2.4); AST(SGOT) 11 U/L (15-37); Alanine Aminotransfer ALT/SGPT 24 U/L (16-61); Albumin, Serum 3.1 g/dL (3.2-5.0); Alkaline Phosphatase 88 U/L (45-117); Anion Gap 6 (5-15); BUN 16 mg/dL (7-18); BUN/Creat Ratio 15.8 RATIO (10-20); Calcium,Total 9.1 mg/dL (8.5-10.1); Chloride 106 mmol/L (98-107); Creatinine, Serum 1.01 mg/dL (0.70-1.30); EST Glomerular Filtration Rate 77 mL/min (>60); Est Glom Filt Rate - Afr Amer 94 mL/min (>60); Estimated Creatinine Clearance 69.27 ml/min; Glucose 113 mg/dL (74-106); Potassium 3.3 mmol/L (3.5-5.1); Protein, Total 7.1 g/dL (6.4-8.2); Sodium Level 140 mmol/L (136-145)
[2022-08-07] MEDS: Potassium Chloride Oral Tablet 20 MEQ 40 MEQ PO (08:19)
[2022-08-07] MEDS: Potassium Chloride Oral Tablet 10 MEQ 20 MEQ PO (08:20)
[2022-08-07] MEDS: Aspirin 81 MG TAB.CHEW PO (08:21)
[2022-08-07] MEDS: Metoprolol Tartrate 25 MG Tablet 12.5 MG PO ×2 (08:22→22:13)
[2022-08-07] MEDS: Clopidogrel Bisulfate 75 MG Tablet PO (08:23)
[2022-08-07] MEDS: Enoxaparin 40 MG/0.4 ML Syringe SC (08:23)
[2022-08-07] MEDS: Mirabegron 25 MG TAB.ER.24H PO (08:24)
[2022-08-07] MEDS: Cyanocobalamin 500 MCG Tablet PO (08:25)
[2022-08-07] MEDS: Timolol 0.5% 5ML OPTH.BTL 1 DRP RIGHT EYE ×2 (08:25→22:14)
[2022-08-07] MEDS: Lisinopril 20 MG Tablet PO ×2 (08:25→22:19)
[2022-08-07] MEDS: amLODIPine 10 MG Tablet PO (08:25)
[2022-08-07] MEDS: 0.9% Saline Lock 10 ML Syringe IV (10:39)
[2022-08-07] MEDS: Ceftriaxone 1 GM/50 ML BAG IV (10:39)
--- NOTE | 2022-08-07 11:12 | CASEMGMT ---
JIM called [facility] and Deonna was out today, but Gwen was the RN on duty. JIM notified Gwen patient will be returning today. Barbi Wu ELECTRIC MOTOR WINDER KERVIN
--- NOTE | 2022-08-07 14:41 | PCM.DC ---
Discharge Instructions Diet Discharge Diet: - (You were evaluated by speech therapy who recommended that you take small bites, small sips, no straws, use a slower rate and sit up at 90 degree angle and remain sitting upright for 30 minutes after eating. They recommended further speech therapy services) Activity Discharge Activity: - (Continue to use walker) Follow Up Care Test Results: Test results from this visit will be discussed in further detail at your follow-up appointment, if applicable. Discharge Plan Admission Admit Date/Time: 08/04/22 14:43 Primary Reason for Your Visit: Right sided facial droop Attending Provider: Carmen Hayes Primary Care Provider: Edin Cardenas Consulting Providers: Renuka Carreno Instructions Patient Instructions: Discharge Instructions for Stroke Additional Instructions / Restrictions: *Please take this with you to your next doctors appointment* DISCHARGE INSTRUCTIONS PLEASE READ ?You were admitted and found to have a stroke ?You will be discharged with instructions for a 30-day heart monitor ? You also need to take an aspirin and Plavix for 90 days at that time further adjustments/discontinuation of 1 agent can be determined by your primary care physician or neurologist. ?Your statin was changed to atorvastatin, please stop taking pravastatin at this time he will instead take the atorvastatin daily ? It will be important to follow with neurology upon discharge, contact information provided, please call to schedule hospital follow-up appointment ? You were evaluated by speech therapy who recommended that you take small bites, small sips, no straws, use a slower rate and sit up at 90 degree angle and remain sitting upright for 30 minutes after eating. They recommended further speech therapy services ?You are also found to have a urinary tract infection, he received 4 days of antibiotics in the hospital and you will be discharged on 3 more days of Keflex to begin the morning of 08/08/2022 to complete a 7-day course -Please call your primary care provider's office upon discharge to schedule a hospital follow up within 1 week. -For any concerning signs or symptoms please call 911 or proceed to the nearest emergency department Discharge Orders/Prescriptions Prescriptions: New atorvastatin 80 mg Tablet 80 mg PO QHS 30 Days Qty: 30 0RF clopidogrel 75 mg Tablet 75 mg PO DAILY 30 Days Qty: 30 0RF cephalexin 500 mg capsule 500 mg PO Q12H 3 Days Qty: 6 0RF Continued albuterol sulfate 90 mcg/actuation HFA aerosol inhaler 2 puff INHALATION Q4H PRN PRN (Reason: Shortness Of Breath) Label Comments: 2 PUFFS BY MOUTH EVERY 4 HOURS NEEDED FOR COPD potassium chloride 10 mEq capsule, extended release 20 meq PO DAILY Label Comments: 2 CAPSULES (20MEQ) BYAMOUTH DAILY DX: HYPOKALEMIA / NURSE TO REORDER trazodone 50 mg tablet 25 mg PO QHS Label Comments: 1/2 TABLET (25MG) BYTMOUTH AT BEDTIME ([id number]) DX: / NURSE TO REORDER lisinopril 20 mg tablet 20 mg PO BID Label Comments: 1 TABLET BY MOUTH TWICE AIDAY DX: HYPERTENSION / NURSE TO REORDER hydroxyzine pamoate 50 mg capsule 50 mg PO TID Label Comments: 1 CAPSULE BY MOUTH THREEATIMES DAILY DX:ANXIETY/RNURSE TO REORDER tamsulosin 0.4 mg capsule 0.4 mg PO QHS Label Comments: 1 CAPSULE BY MOUTH ATMBEDTIME DX: / NURSE TOOREORDER trazodone 100 mg tablet 100 mg PO QHS Label Comments: 1 TABLET BY MOUTH ATTBEDTIME DX: INSOMNIA / NURSE TO REORDER amlodipine 10 mg tablet 10 mg PO DAILY Label Comments: 1 TABLET BY MOUTH DAILYIDX: HYPERTENSION / NURSERTO REORDER mirtazapine 30 mg tablet 30 mg PO QHS Label Comments: 1 TABLET BY MOUTH ATHBEDTIME DX: DEPRESSION /GNURSE TO REORDER montelukast 10 mg tablet 10 mg PO QHS Label Comments: 1 TABLET BY MOUTH ATTBEDTIME DX: / NURSE TODREORDERE ergocalciferol (vitamin D2) 1,250 mcg (50,000 unit) capsule 1,250 mcg PO SA Rx Instructions: FRIDAY timolol maleate 0.5 % drops 1 drp RIGHT EYE BID Label Comments: 1 DROP INTO RIGHT EYE 2ITIMES A DAY DX: loratadine 10 mg tablet 10 mg PO QHS Label Comments: 1 TABLET BY MOUTH ATABEDTIME DX: ALLERGIC RHINITIS / NURSE TO REORDER metoprolol tartrate 25 mg tablet 12.5 mg PO BID Label Comments: 1/2 TABLET (12.5MG) BYOMOUTH TWICE DAILY DX:ESSENTIAL HYPERTENSION/ NURSE TO REORDER Lumigan 0.01 % drops 1 drp RIGHT EYE QHS Label Comments: 1 DROP INTO RIGHT EYE ATSBEDTIME Myrbetriq 25 mg tablet extended release 24 hr 25 mg PO DAILY Label Comments: 1 TABLET BY MOUTH DAILY /ONURSE TO REORDER/ multivitamin Tablet 1 tab PO DAILY acetaminophen 325 mg Tablet 325 mg PO QHS guaifenesin 100 mg/5 mL Liquid 200 mg PO QHS PRN (Reason: Congestion) cyanocobalamin (vitamin B-12) 500 mcg Tablet 500 mcg PO DAILY aspirin 81 mg Tablet,Chewable 81 mg PO DAILY fluticasone propionate 50 mcg/actuation [place],Suspension 1 spray INTRANASAL DAILY PRN (Reason: ALLERGIES) Rx Instructions: administer into each nostril guaifenesin [Mucus Relief] 400 mg Tablet 400 mg PO TID PRN (Reason: Congestion) cholecalciferol (vitamin D3) 25 mcg (1,000 unit) Tablet 25 mcg PO DAILY melatonin 5 mg Tablet 10 mg PO QHS Discontinued pravastatin 40 mg tablet 40 mg PO QHS Label Comments: 1 TABLET BY MOUTH ATHBEDTIME DX: HYPERLIPIDEMIA / NURSE TO REORDER Other Ambulatory Orders: 30 Day Event Recorder Preventi (Urgent) Timeframe: 1 Day Facility: [facility] - Location: Cardiovascular Services Ordered By: Dr. Carmen Hayes Referrals / Follow Up: Edin Cardenas MD [Primary Care Provider] - Within 1 Week [facility] MD [Non-Staff -Ordering Privileges] - See Referral Note (Please call the neurologist office upon discharge to schedule your hospital follow-up appointment) Disposition Disposition (needs filled in before D/C Order can be placed): Home Health Service
--- NOTE | 2022-08-07 15:07 | PHA.DC.MR ---
Pharmacy Service has performed discharge medication reconciliation for this patient. The patient's discharge medication list was reviewed for discrepancies and discrepancies were resolved. Home Medications acetaminophen 325 mg tablet 325 mg PO QHS BACK PAIN 08/04/22 albuterol sulfate 90 mcg/actuation aerosol inhaler 2 puff inhalation Q4H PRN PRN Shortness Of Breath 08/04/22 amlodipine 10 mg tablet 10 mg PO DAILY BP 08/04/22 aspirin 81 mg chewable tablet 81 mg PO DAILY HEALTH 08/04/22 bimatoprost 0.01 % eye drops (Lumigan) 1 drp RIGHT EYE QHS 08/04/22 cholecalciferol (vitamin D3) 25 mcg (1,000 unit) tablet 25 mcg PO DAILY SUPPLEMENT 08/04/22 cyanocobalamin (vitamin B-12) 500 mcg tablet 500 mcg PO DAILY SUPPLEMENT 08/04/22 ergocalciferol (vitamin D2) 1,250 mcg (50,000 unit) capsule 1,250 mcg PO SA SUPPLEMENT 08/04/22 fluticasone propionate 50 mcg/actuation nasal spray,suspension 1 spray intranasal DAILY PRN ALLERGIES 08/04/22 guaifenesin 100 mg/5 mL oral liquid 200 mg PO QHS PRN Congestion 08/04/22 guaifenesin 400 mg tablet (Mucus Relief) 400 mg PO TID PRN Congestion 08/04/22 hydroxyzine pamoate 50 mg capsule 50 mg PO TID ANXIETY 08/04/22 lisinopril 20 mg tablet 20 mg PO BID BP 08/04/22 loratadine 10 mg tablet 10 mg PO QHS ALLERGIES 08/04/22 melatonin 5 mg tablet 10 mg PO QHS SLEEP 08/04/22 metoprolol tartrate 25 mg tablet 12.5 mg PO BID BP 08/04/22 mirabegron 25 mg tablet,extended release 24 hr (Myrbetriq) 25 mg PO DAILY BLADDER 08/04/22 mirtazapine 30 mg tablet 30 mg PO QHS SLEEP 08/04/22 montelukast 10 mg tablet 10 mg PO QHS ALLERGIES 08/04/22 multivitamin 1 tab PO DAILY SUPPLEMENT 08/04/22 potassium chloride 10 mEq capsule,extended release 20 meq PO DAILY POTASSIUM 08/04/22 tamsulosin 0.4 mg capsule 0.4 mg PO QHS PROSTATE 08/04/22 timolol maleate 0.5 % eye drops 1 drp RIGHT EYE BID 08/04/22 trazodone 100 mg tablet 100 mg PO QHS SLEEP 08/04/22 trazodone 50 mg tablet 25 mg PO QHS SLEEP 08/04/22 atorvastatin 80 mg tablet 80 mg PO QHS 30 days #30 tabs 08/07/22 cephalexin 500 mg capsule 500 mg PO Q12H 3 days #6 caps 08/07/22 clopidogrel 75 mg tablet 75 mg PO DAILY 30 days #30 tabs 08/07/22
--- NOTE | 2022-08-07 15:15 | CASEMGMT ---
Patient is ready for discharge. JIM called [facility] to arrange transport and requested [facility] and let them know patient needs a wheelchair provided. Trip reference number is: [id number]. JIM faxed d/c instructions to [facility]. However, they did not go through. JIM tried again and they still did not go through. Barbi Wu DAIRY WORKER KERVIN
--- NOTE | 2022-08-07 15:20 | DS.PCM_ITS ---
Providers Date of Admission: 08/04/22 Date of Discharge: 08/07/22 Primary Care Physician: Dr. Edin Cardenas MD Reason For Visit: CVA Diagnosis Discharge Diagnosis (1) Dysarthria: Status: Acute Code(s): R47.1 - Dysarthria and anarthria (2) Facial droop: Status: Acute Code(s): R29.810 - Facial weakness (3) Ataxia of upper extremity: Status: Acute Code(s): R27.0 - Ataxia, unspecified (4) UTI (urinary tract infection): Status: Acute Code(s): N39.0 - Urinary tract infection, site not specified Plan #Acute CVA #UTI #Chronic hypoxic respiratory failure secondary to COPD with ongoing tobacco abuse #Alcohol use #Glaucoma #BPH #Hypertension #MDD Medications at Discharge Home Medications acetaminophen 325 mg tablet 325 mg PO QHS BACK PAIN 08/04/22 albuterol sulfate 90 mcg/actuation aerosol inhaler 2 puff inhalation Q4H PRN PRN Shortness Of Breath 08/04/22 amlodipine 10 mg tablet 10 mg PO DAILY BP 08/04/22 aspirin 81 mg chewable tablet 81 mg PO DAILY HEALTH 08/04/22 bimatoprost 0.01 % eye drops (Lumigan) 1 drp RIGHT EYE QHS 08/04/22 cholecalciferol (vitamin D3) 25 mcg (1,000 unit) tablet 25 mcg PO DAILY SUPPLEMENT 08/04/22 cyanocobalamin (vitamin B-12) 500 mcg tablet 500 mcg PO DAILY SUPPLEMENT 08/04/22 ergocalciferol (vitamin D2) 1,250 mcg (50,000 unit) capsule 1,250 mcg PO SA SUPPLEMENT 08/04/22 fluticasone propionate 50 mcg/actuation nasal spray,suspension 1 spray intranasal DAILY PRN ALLERGIES 08/04/22 guaifenesin 100 mg/5 mL oral liquid 200 mg PO QHS PRN Congestion 08/04/22 guaifenesin 400 mg tablet (Mucus Relief) 400 mg PO TID PRN Congestion 08/04/22 hydroxyzine pamoate 50 mg capsule 50 mg PO TID ANXIETY 08/04/22 lisinopril 20 mg tablet 20 mg PO BID BP 08/04/22 loratadine 10 mg tablet 10 mg PO QHS ALLERGIES 08/04/22 melatonin 5 mg tablet 10 mg PO QHS SLEEP 08/04/22 metoprolol tartrate 25 mg tablet 12.5 mg PO BID BP 08/04/22 mirabegron 25 mg tablet,extended release 24 hr (Myrbetriq) 25 mg PO DAILY BLADDER 08/04/22 mirtazapine 30 mg tablet 30 mg PO QHS SLEEP 08/04/22 montelukast 10 mg tablet 10 mg PO QHS ALLERGIES 08/04/22 multivitamin 1 tab PO DAILY SUPPLEMENT 08/04/22 potassium chloride 10 mEq capsule,extended release 20 meq PO DAILY POTASSIUM 08/04/22 tamsulosin 0.4 mg capsule 0.4 mg PO QHS PROSTATE 08/04/22 timolol maleate 0.5 % eye drops 1 drp RIGHT EYE BID 08/04/22 trazodone 100 mg tablet 100 mg PO QHS SLEEP 08/04/22 trazodone 50 mg tablet 25 mg PO QHS SLEEP 08/04/22 atorvastatin 80 mg tablet 80 mg PO QHS 30 days #30 tabs 08/07/22 cephalexin 500 mg capsule 500 mg PO Q12H 3 days #6 caps 08/07/22 clopidogrel 75 mg tablet 75 mg PO DAILY 30 days #30 tabs 08/07/22 Hospital Course Procedures - (MRI, CTA, echocardiogram) Summary of Care Provided Minutes Spent on Discharge: 25 Hospital Course: 72-year-old male with history of COPD, hypertension, tobacco use presented 08/04/2022 with vertigo, dysarthria, right-sided facial droop, bilateral upper extremity ataxia. He woke up at 1 AM and felt the room spinning but went back to bed and when he woke up there was dysarthria, right-sided facial droop and upper extremity ataxia and EMS was called. Based on ED note the facial droop and dysarthria was noted by EMS. Symptoms resolved on presentation and stroke call was not called, CTA with moderate but no critical stenosis, MRI initially read as no stroke. Did consult neurology given concerning symptoms and neurologist reported that there was indeed a stroke that he saw on MRI. Patient had been placed on aspirin and statin on admission and Plavix was added. On day of discharge he did not have any complaints, denied any neurological symptoms, breathing at baseline. Discharge instructions and recommendations as below. *Please take this with you to your next doctors appointment* DISCHARGE INSTRUCTIONS PLEASE READ ?You were admitted and found to have a stroke ?You will be discharged with instructions for a 30-day heart monitor ? You also need to take an aspirin and Plavix for 90 days at that time further adjustments/discontinuation of 1 agent can be determined by your primary care physician or neurologist. ?Your statin was changed to atorvastatin, please stop taking pravastatin at this time he will instead take the atorvastatin daily ? It will be important to follow with neurology upon discharge, contact information provided, please call to schedule hospital follow-up appointment ? You were evaluated by speech therapy who recommended that you take small bites, small sips, no straws, use a slower rate and sit up at 90 degree angle and remain sitting upright for 30 minutes after eating.? They recommended further speech therapy services ?You are also found to have a urinary tract infection, he received 4 days of antibiotics in the hospital and you will be discharged on 3 more days of Keflex to begin the morning of 08/08/2022 to complete a 7-day course -Please call your primary care provider's office upon discharge to schedule a hospital follow up within 1 week. -For any concerning signs or symptoms please call 911 or proceed to the nearest emergency department Physical Exam Const alert and no apparent distress HEENT normocephalic and head/scalp atraumatic Eyes Eyes Narrative: EOM grossly intact, anicteric Neck supple Resp normal respiratory effort and clear to auscultation bilaterally Cardio regular rate and regular rhythm GI soft to palpation, non-tender and non-distended Extremity Extremity Narrative: No edema appreciated Neuro moves all extremities Neuro Narrative: No deficits appreciated Psych Psych Narrative: cooperative Weight / BMI Weight Weight: 102.7 kg Body Mass Index (BMI) 32.5 ABG / Lab / Microbiology Data Result Diagrams: 08/07/22 05:55 08/07/22 05:55 Laboratory: Laboratory Results - last 24 hr 08/07/22 05:55: WBC 9.2, RBC 5.22, Hgb 14.9, Hct 45.4, MCV 87.0, MCH 28.5, MCHC 32.8, RDW Std Deviation 47.5 H, RDW Coeff of Amira 14.7 H, Plt Count 294, MPV 9.6, Immature Gran % (Auto) 0.200, Neut % (Auto) 58.1, Lymph % (Auto) 28.5, [place] % (Auto) 9.2, Eos % (Auto) 3.0, Baso % (Auto) 1.0, Absolute Neuts (auto) 5.4, Absolute Lymphs (auto) 2.63, Nucleated RBC % 0 08/07/22 05:55: Sodium 140, Potassium 3.3 L, Chloride 106, Carbon Dioxide 28.0, Anion Gap 6, BUN 16, Creatinine 1.01, Estim Creat Clear Calc 69.27, Est GFR (MDRD) Af Amer 94, Est GFR (MDRD) Non-Af 77, BUN/Creatinine Ratio 15.8, Glucose 113 H, Calcium 9.1, Total Bilirubin 0.40, AST 11 L, ALT 24, Alkaline Phosphatase 88, Total Protein 7.1, Albumin 3.1 L, Globulin 4.0, Albumin/Globulin Ratio 0.8 L Microbiology: Microbiology 08/06/22 19:25 Mucosa - Nasopharyngeal Respiratory Panel (PCR) - Final 08/06/22 12:31 Nasal Secretion SARS-CoV-2 & FLU Antigen (Rapid) - Final 08/04/22 14:10 Urine, Clean Catch Urine Culture - Final Mixed Gram Positive Organisms D/C Instructions Discharge Diet: - (You were evaluated by speech therapy who recommended that you take small bites, small sips, no straws, use a slower rate and sit up at 90 degree angle and remain sitting upright for 30 minutes after eating. They janusz mmended further speech therapy services) Meaningful Use Info Meaningful Use Diagnoses (Choose all that apply): Ischemic CVA CVA Therapy Assessed for PT,OT and/or ST?: Yes Ischemic Stroke Antithrombotic order at d/c?: Yes Dx of Atrial fib/flutter?: No Statins at discharge?: Yes Primary Dx Acute Ischemic CVA?: Yes IV tPA ordered during stay?: No Reason IV t-PA not ordered: Treatment not Indicated Discharge Plan Admission Admit Date/Time: 08/04/22 14:43 Primary Reason for Your Visit: Right sided facial droop Attending Provider: Carmen Hayes Primary Care Provider: Edin Cardenas Consulting Providers: Renuka Carreno Instructions Patient Instructions: Discharge Instructions for Stroke Additional Instructions / Restrictions: *Please take this with you to your next doctors appointment* DISCHARGE INSTRUCTIONS PLEASE READ ?You were admitted and found to have a stroke ?You will be discharged with instructions for a 30-day heart monitor ? You also need to take an aspirin and Plavix for 90 days at that time further adjustments/discontinuation of 1 agent can be determined by your primary care physician or neurologist. ?Your statin was changed to atorvastatin, please stop taking pravastatin at this time he will instead take the atorvastatin daily ? It will be important to follow with neurology upon discharge, contact information provided, please call to schedule hospital follow-up appointment ? You were evaluated by speech therapy who recommended that you take small bites, small sips, no straws, use a slower rate and sit up at 90 degree angle and remain sitting upright for 30 minutes after eating. They recommended further speech therapy services ?You are also found to have a urinary tract infection, he received 4 days of antibiotics in the hospital and you will be discharged on 3 more days of Keflex to begin the morning of 08/08/2022 to complete a 7-day course -Please call your primary care provider's office upon discharge to schedule a hospital follow up within 1 week. -For any concerning signs or symptoms please call 911 or proceed to the nearest emergency department Discharge Orders/Prescriptions Prescriptions: New atorvastatin 80 mg Tablet 80 mg PO QHS 30 Days Qty: 30 0RF clopidogrel 75 mg Tablet 75 mg PO DAILY 30 Days Qty: 30 0RF cephalexin 500 mg capsule 500 mg PO Q12H 3 Days Qty: 6 0RF Continued albuterol sulfate 90 mcg/actuation HFA aerosol inhaler 2 puff INHALATION Q4H PRN PRN (Reason: Shortness Of Breath) Label Comments: 2 PUFFS BY MOUTH EVERY 4 HOURS NEEDED FOR COPD potassium chloride 10 mEq capsule, extended release 20 meq PO DAILY Label Comments: 2 CAPSULES (20MEQ) BYAMOUTH DAILY DX: HYPOKALEMIA / NURSE TO REORDER trazodone 50 mg tablet 25 mg PO QHS Label Comments: 1/2 TABLET (25MG) BYTMOUTH AT BEDTIME (W/144WB=160LR) DX: / NURSE TO REORDER lisinopril 20 mg tablet 20 mg PO BID Label Comments: 1 TABLET BY MOUTH TWICE AIDAY DX: HYPERTENSION / NURSE TO REORDER hydroxyzine pamoate 50 mg capsule 50 mg PO TID Label Comments: 1 CAPSULE BY MOUTH THREEATIMES DAILY DX:ANXIETY/RNURSE TO REORDER tamsulosin 0.4 mg capsule 0.4 mg PO QHS Label Comments: 1 CAPSULE BY MOUTH ATMBEDTIME DX: / NURSE TOOREORDER trazodone 100 mg tablet 100 mg PO QHS Label Comments: 1 TABLET BY MOUTH ATTBEDTIME DX: INSOMNIA / NURSE TO REORDER amlodipine 10 mg tablet 10 mg PO DAILY Label Comments: 1 TABLET BY MOUTH DAILYIDX: HYPERTENSION / NURSERTO REORDER mirtazapine 30 mg tablet 30 mg PO QHS Label Comments: 1 TABLET BY MOUTH ATHBEDTIME DX: DEPRESSION /GNURSE TO REORDER montelukast 10 mg tablet 10 mg PO QHS Label Comments: 1 TABLET BY MOUTH ATTBEDTIME DX: / NURSE TODREORDERE ergocalciferol (vitamin D2) 1,250 mcg (50,000 unit) capsule 1,250 mcg PO SA Rx Instructions: FRIDAY timolol maleate 0.5 % drops 1 drp RIGHT EYE BID Label Comments: 1 DROP INTO RIGHT EYE 2ITIMES A DAY DX: loratadine 10 mg tablet 10 mg PO QHS Label Comments: 1 TABLET BY MOUTH ATABEDTIME DX: ALLERGIC RHINITIS / NURSE TO REORDER metoprolol tartrate 25 mg tablet 12.5 mg PO BID Label Comments: 1/2 TABLET (12.5MG) BYOMOUTH TWICE DAILY DX:ESSENTIAL HYPERTENSION/ NURSE TO REORDER Lumigan 0.01 % drops 1 drp RIGHT EYE QHS Label Comments: 1 DROP INTO RIGHT EYE ATSBEDTIME Myrbetriq 25 mg tablet extended release 24 hr 25 mg PO DAILY Label Comments: 1 TABLET BY MOUTH DAILY /ONURSE TO REORDER/ multivitamin Tablet 1 tab PO DAILY acetaminophen 325 mg Tablet 325 mg PO QHS guaifenesin 100 mg/5 mL Liquid 200 mg PO QHS PRN (Reason: Congestion) cyanocobalamin (vitamin B-12) 500 mcg Tablet 500 mcg PO DAILY aspirin 81 mg Tablet,Chewable 81 mg PO DAILY fluticasone propionate 50 mcg/actuation [place],Suspension 1 spray INTRANASAL DAILY PRN (Reason: ALLERGIES) Rx Instructions: administer into each nostril guaifenesin [Mucus Relief] 400 mg Tablet 400 mg PO TID PRN (Reason: Congestion) cholecalciferol (vitamin D3) 25 mcg (1,000 unit) Tablet 25 mcg PO DAILY melatonin 5 mg Tablet 10 mg PO QHS Discontinued pravastatin 40 mg tablet 40 mg PO QHS Label Comments: 1 TABLET BY MOUTH ATHBEDTIME DX: HYPERLIPIDEMIA / NURSE TO REORDER Other Ambulatory Orders: 30 Day Event Recorder Tabatha ThomasUrgent) Timeframe: 1 Day Facility: [facility] - Location: Cardiovascular Services Ordered By: Dr. Carmen Hayes Referrals / Follow Up: Edin Cardenas MD [Primary Care Provider] - Within 1 Week [facility]a [facility] MD [Non-Staff -Ordering Privileges] - See Referral Note (Please call the neurologist office upon discharge to schedule your hospital follow-up appointment) Disposition Disposition (needs filled in before D/C Order can be placed): Home Health Service Charges/Coding Visit Charges Inpatient E&M: 71764 Disch Hosp
--- NOTE | 2022-08-07 16:25 | CASEMGMT ---
JIM called [facility] to check on status of transport. SW was placed on hold and then ended up being connected to [facility]. SW arranged for patient to get picked up at 7p via wheelchair van. JIM notified RN, executive legal secretary, and supercharger repair supervisor. JIM called [facility] and spoke with Gwen the nurse on duty and let her know about machine operator hop picker and that SW cannot get fax to go through. JIM also let Gwen know that patient will have event recorders mailed to him. Plan: d/c back to [facility]. Order for home health PT,OT, and ST was sent with patient as they have their own company they use. [facility] transported [facility] via [facility] van and [facility] Barbi GALEANA
[2022-08-07] MEDS: traZODone 50 MG Tablet 25 MG PO (22:11)
[2022-08-07] MEDS: Tamsulosin HCl 0.4 MG Capsule PO (22:11)
[2022-08-07] MEDS: Loratadine 10 MG Tablet PO (22:11)
[2022-08-07] MEDS: MELATONIN 10 MG TABLET PO (22:12)
[2022-08-07] MEDS: Atorvastatin Calcium 80 MG Tablet PO (22:12)
[2022-08-07] MEDS: traZODone 100 MG Tablet PO (22:12)
[2022-08-07] MEDS: Mirtazapine 30 MG Tablet PO (22:13)
[2022-08-07] MEDS: Montelukast 10 MG Tablet PO (22:14)
[2022-08-07] MEDS: Latanoprost 0.005% 1 Bottle 1 DRP RIGHT EYE (22:15)
[2022-08-08 02:38] VITALS: BP 163/85; PULSE 56; RESP 20; TEMP 36.5; O2SAT 93
--- NOTE | 2022-08-08 03:12 | NURSING ---
Pt was assisted to restroom, and noted to void without difficulty, pt denies needs and pain at this time. pt was dressed with shoes on. no farther belongings at bedside. pt assisted on to cart and ambulatory to exit with [facility] company.
== END 2022-08-08 03:05 | disposition home health service (06) | DRG 65 ==
LOC: ED 14:10 → PCU 14:53
PROVIDERS: Admitting Provider Internal Medicine; Emergency Provider Emergency Medicine; PCP Family Medicine; Visit Provider Internal Medicine
DX: I63.9 Cerebral infarction, unspecified (principal); J44.9 Chronic obstructive pulmonary disease, unspecified; J96.11 Chronic respiratory failure with hypoxia; N39.0 Urinary tract infection, site not specified; Z99.81 Dependence on supplemental oxygen; I10 Essential (primary) hypertension; F32.9 Major depressive disorder, single episode, unspecified; F10.10 Alcohol abuse, uncomplicated; F17.210 Nicotine dependence, cigarettes, uncomplicated; I65.23 Occlusion and stenosis of bilateral carotid arteries; I65.03 Occlusion and stenosis of bilateral vertebral arteries; R29.703 NIHSS score 3; R47.1 Dysarthria and anarthria; R29.810 Facial weakness; R27.0 Ataxia, unspecified; R73.9 Hyperglycemia, unspecified; N40.0 Benign prostatic hyperplasia without lower urinary tract symptoms; H40.9 Unspecified glaucoma; Z23 Encounter for immunization; Z20.822 Contact with and (suspected) exposure to COVID-19; Z79.82 Long term (current) use of aspirin; Z79.899 Other long term (current) drug therapy; Z86.73 Personal history of transient ischemic attack (TIA), and cerebral infarction without residual deficits
CPT/HCPCS: 36415; 70450; 70496; 70498; 70551; 71045; 80048; 80053; 80061; 80320; 81001; 83735; 84100; 84443; 84484; 85025; 85610; 85730; 87086; 87088; 87428; 87633; 92526; 92610; 93005; 93306; 94660; 94762; 96365; 96366; 96372; 96375; 97110; 97116; 97162; 97166; 97530; 97535; 97802; 99221; 99252; 99285; G0008; Q9967; 90686; A4216; G0378; G0463; G0480; J2405

== ENCOUNTER 2022-08-19 15:08 | Observation (INO) | payer MEDICARE, MEDICAID, SELFPAY ==
[2022-08-19] VITALS (14 sets, daily range): BP systolic 133–176; BP diastolic 75–124; PULSE 62–75; RESP 15–22; TEMP 36.5–36.8; O2SAT 89–94; BMI 31.3; BMI 31.8
--- NOTE | 2022-08-19 15:10 | CT_ITS ---
STUDY: CT HEAD STROKE PROTOCOL W/O CONTRAST INJECTION REASON FOR EXAM: Male, 72 years old. CVA RADIATION DOSAGE (If Supplied By Facility): CTDIvol = ( 44.99 ) mGy, DLP = ( 796.11 ) mGycm TECHNIQUE: Transaxial CT imaging of the brain was performed without administration of intravenous contrast material. Individualized dose optimization techniques were used for this CT. COMPARISON: Comparison is made with prior study dated 08/04/2022. FINDINGS: Normal soft tissue structures. Normal calvarium. There is mild cerebral atrophy with widening of the extra-axial spaces and ventricular dilatation. There are areas of decreased attenuation within the white matter tracts of the supratentorial brain, consistent with microvascular disease changes. Stable small old lacunar infarcts in the left basal ganglion. Normal brainstem. There is mild cerebellar atrophy. There is no intracranial hemorrhage. There are no findings of an acute ischemic infarction. Atherosclerotic plaque formation of the vertebral arteries and cavernous portions of the internal carotid arteries bilaterally. Mucosal thickening of the ethmoid sinuses bilaterally. ASPECT score: 10 CT/STROKE Brain/Head without Cont IMPRESSION: Chronic involutional changes of the brain. N.B. : The above Results were Read Back by Corbin Shea MD to Dr Ruslan DO, and understanding confirmed on 08/19/2022 15:27:11 (ET). Electronically Signed: Corbin Shea MD at 15:28 EST ,
--- NOTE | 2022-08-19 15:13 | EKG12_ITS ---
Test Reason : Blood Pressure : / mmHG Vent. Rate : 062 BPM Atrial Rate : 062 BPM P-R Int : 258 ms QRS Dur : 104 ms QT Int : 404 ms P-R-T Axes : 104 -35 019 degrees QTc Int : 410 ms Sinus rhythm with 1st degree A-V block Left axis deviation Inferior WI, age undetermined, cannot be excluded Abnormal ECG Confirmed by LELAND LOJA, MALICK ([id number]), editor producer BASSAM FLANAGAN ([id number]) on 08/21/2022 9:04:00 AM Referred By: HARSH Confirmed By:MALICK HA MD
--- NOTE | 2022-08-19 15:13 | ED.VIS.STROK ---
HPI History of Present Illness Chief Complaint: Neuro S/Sx Narrative Narrative: 72-year-old male presenting with strokelike symptoms. He was met at the door the emergency room. Sugar was normal. Patient alert and awake. Patient reportedly had not even a whole 25 ounce tall boy beer today. He was told about 1230 he has a new facial droop. Patient admits to left leg decreased sensation. Patient recently admitted for strokelike symptoms. He states he did not have any residual deficits. It is difficult to get a history from the patient regarding his strokelike symptoms. When asked what they were he states he was going to the bathroom and all hell broke loose. [facility] Medical History Alcohol abuse Alcohol withdrawal Ankle fracture, right Cataract Cerebral vascular disease COPD (chronic obstructive pulmonary disease) Depression Elbow fracture, right Glaucoma HTN (hypertension) Hypertrophy of prostate with urinary obstruction Hypokalemia Obstructive sleep apnea Retinal detachment Smoker Stroke Suicide ideation UTI (urinary tract infection) Vitamin D deficiency Home Medications acetaminophen 325 mg tablet 325 mg PO QHS BACK PAIN 08/04/22 [History Last Taken 08/03/22] amlodipine 10 mg tablet 10 mg PO DAILY BP 08/04/22 [History Last Taken 08/04/22] aspirin 81 mg chewable tablet 81 mg PO DAILY HEALTH 08/04/22 [History Last Taken 08/04/22] bimatoprost 0.01 % eye drops (Lumigan) 1 drp RIGHT EYE QHS 08/04/22 [History Last Taken 08/03/22] cholecalciferol (vitamin D3) 25 mcg (1,000 unit) tablet 25 mcg PO DAILY SUPPLEMENT 08/04/22 [History Last Taken 08/04/22] cyanocobalamin (vitamin B-12) 500 mcg tablet 500 mcg PO DAILY SUPPLEMENT 08/04/22 [History Last Taken 08/04/22] hydroxyzine pamoate 50 mg capsule 50 mg PO TID ANXIETY 08/04/22 [History Last Taken 08/04/22] lisinopril 20 mg tablet 20 mg PO BID BP 08/04/22 [History Last Taken 08/04/22] loratadine 10 mg tablet 10 mg PO QHS ALLERGIES 08/04/22 [History Last Taken 08/03/22] melatonin 5 mg tablet 10 mg PO QHS SLEEP 08/04/22 [History Last Taken 08/03/22] metoprolol tartrate 25 mg tablet 12.5 mg PO BID BP 08/04/22 [History Last Taken 08/04/22] mirabegron 25 mg tablet,extended release 24 hr (Myrbetriq) 25 mg PO DAILY BLADDER 08/04/22 [History Last Taken 08/04/22] mirtazapine 30 mg tablet 30 mg PO QHS SLEEP 08/04/22 [History Last Taken 08/03/22] montelukast 10 mg tablet 10 mg PO QHS ALLERGIES 08/04/22 [History Last Taken 08/03/22] multivitamin 1 tab PO DAILY SUPPLEMENT 08/04/22 [History Last Taken 08/04/22] potassium chloride 10 mEq capsule,extended release 20 meq PO DAILY POTASSIUM 08/04/22 [History Last Taken 08/04/22] tamsulosin 0.4 mg capsule 0.4 mg PO QHS PROSTATE 08/04/22 [History Last Taken 08/03/22] timolol maleate 0.5 % eye drops 1 drp RIGHT EYE BID 08/04/22 [History Last Taken 08/04/22] trazodone 100 mg tablet 100 mg PO QHS SLEEP 08/04/22 [History Last Taken 08/03/22] trazodone 50 mg tablet 25 mg PO QHS SLEEP 08/04/22 [History Last Taken 08/03/22] atorvastatin 80 mg tablet 80 mg PO QHS 30 days #30 tabs 08/07/22 [Rx Last Taken Unknown] clopidogrel 75 mg tablet 75 mg PO DAILY 30 days #30 tabs 08/07/22 [Rx Last Taken Unknown] pravastatin 40 mg tablet 40 mg PO DAILY 08/19/22 [History Last Taken Unknown] Allergy/AdvReac Type Severity Reaction Status Date / Time No Known Allergies Allergy Verified 08/19/22 19:47 Surgical History H/O cataract extraction Hx of tonsillectomy Social History housing: detention Smoking Status: Current every day smoker tobacco type: cigarettes alcohol intake: current details: Patient drinks 2 tall boys daily on a regular basis substance use type: does not use ROS ROS ED Constitutional Constitutional ED: Denies chills, fever(s) or sweats Eyes Eyes: Denies blurry vision or change in vision ENT ENT ED: Denies ear pain or sore throat Cardiovascular Cardiovascular: Denies chest pain, palpitations or racing heartbeat Respiratory/Chest Respiratory/Chest: Denies cough, dyspnea or sputum Gastrointestinal Gastrointestinal: Denies abdominal pain, constipation, diarrhea, nausea or vomiting Genitourinary Genitourinary ED: Denies dysuria, hematuria or urinary frequency Musculoskeletal Musculoskeletal: Denies arthralgias, myalgias or neck pain Integumentary Denies abscess, Abrasions or rash Neurologic Neurologic: Reports paresthesias and other Details: Left-sided facial droop ; Denies headache(s) or weakness Psychiatric Psychiatric: Denies anxiety, depression, suicidal ideation or suicidal thoughts Endocrine Endocrinology: Denies polydipsia or polyuria EXAM Physical Exam Const Vital Signs: 08/19/22 15:14 08/19/22 15:24 08/19/22 15:34 Temperature 98.1 F Temperature Source Oral Pulse Rate 62 75 Respiratory Rate 20 H 17 Blood Pressure 158/82 H 176/124 H Blood Pressure Mean 107 141 Pulse Ox 92 92 Oxygen Delivery Method Room Air Room Air 08/19/22 15:35 08/19/22 15:43 08/19/22 15:58 Temperature Temperature Source Pulse Rate 65 65 Respiratory Rate 19 H 22 H Blood Pressure 146/75 H 159/97 H Blood Pressure Mean 98 117 Pulse Ox 92 92 Oxygen Delivery Method Room Air Room Air 08/19/22 16:42 08/19/22 16:42 08/19/22 16:28 Temperature Temperature Source Pulse Rate 65 70 Respiratory Rate 18 Blood Pressure 162/90 H Blood Pressure Mean 114 Pulse Ox 93 Oxygen Delivery Method Room Air Room Air 08/19/22 16:58 08/19/22 17:28 08/19/22 17:58 Temperature Temperature Source Pulse Rate 69 67 72 Respiratory Rate 16 15 17 Blood Pressure 165/90 H 145/88 H 145/83 H Blood Pressure Mean 115 107 103 Pulse Ox 93 94 93 Oxygen Delivery Method Room Air Room Air Room Air 08/19/22 18:12 08/19/22 16:58 Temperature 97.8 F Temperature Source Oral Pulse Rate 75 68 Respiratory Rate 17 15 Blood Pressure 145/83 H 145/83 H Blood Pressure Mean 103 103 Pulse Ox 93 93 Oxygen Delivery Method Room Air Room Air Positive well nourished General Appearance ED: NAD HEENT Reports moist mucous membranes Eyes PERRL and EOMs intact bilaterally Chest Wall inspection of chest normal Resp normal respiratory effort and clear to auscultation bilaterally Auscultation: Negative for rales, rhonchi or wheezes Cardio Rate: regular rate Rhythm: regular rhythm GI Auscultation: normoactive bowel sounds Extremity normal to inspection General Extremety ED: Negative for deformity or edema General Extremity: Negative for deformity or edema Neuro oriented x3 Sensorium / Orientation: alert Motor Exam: strength 5/5 throughout Skin no wounds NIHSS NIHSS Initial: 1b LOC Questions (Score 2 if aphasic/stupor): 0 1c LOC Commands (Only score 1st attempt): 0 2 Best Gaze (If aphasic, use reflexive mvmts.): 0 3 Visual: 0 4 Facial Palsy: 3 5 Motor Arm Right (UN = amputation/fusion): 0 5 Motor Arm Left: 0 6 Motor Leg Right: 0 6 Motor Leg Left: 0 7 Limb ataxia (Only + if out of proportion): 0 8 Sensory (Aphasia/stupor=0 or 1, coma=2): 1 9 Best Language: 0 10 Dysarthria (mute, coma=2, intubated=UN): 1 11 Extinction and Inattention (only scored if +): 0 Total Score: 5 MDM MDM MDM Narrative Medical decision making narrative: Patient met at the door for strokelike symptoms. NIH stroke scale score of 5 given his facial droop, slightly slurred speech, left leg mild sensation loss. Differential at this point and includes but is not limited to stroke, TIA, LVO, conversion disorder, EtOH intoxication, Morgan's palsy. Patient taken for CT CTA. Recently hospital for right-sided facial droop and bilateral upper extremity ataxia on his previous stay. He reports no deficits. Patient last known well is hard to distinguish because the patient states he is not sure what time he went to bed last night. He has not been seen since last evening and he woke up around 10 AM and drank some beer before going to lunch where it was first noticed he had a facial droop on the left at about 12:30 PM. On his last visit he had a negative CT, CTA, echocardiogram, MRI. Patient states he was told he had a stroke. I am assuming he means a TIA. Although the patient does have a significant facial droop on the left this does not spare the forehead and is most consistent with a Morgan's palsy however I cannot explain why he had left leg sensation loss. On repeat NIH stroke scale exam with the neurologist Beamed in he did not have the sensation loss. His NIH stroke scale score now is 4 although I cannot rule out a TIA. Stroke neurologist recommended admission for MRI as CT brain and CTA of the head and neck are negative.. Differential at this point is stroke, TIA, Morgan's palsy, EtOH intoxication. CBC was obtained for blood blood cell count, hemoglobin, platelets, differential. This shows a leukocytosis of 12.7. No significant left shift. Hemoglobin stable at 13.1. Platelets are normal to 89. PT PTT, INR are obtained to rule out coagulopathy and these are normal. BMP to assess renal function, electrolytes, glucose, anion gap and this is within normal limits. EtOH level was checked because the patient was drinking and this is normal. Urine drug screen was added to determine if there is other drug use. Patient denies this. Drug screen was negative and this is EKG was obtained to assess for dysrhythmia and this shows a sinus rhythm of 62 bpm with first-degree AV block on my interpretation. Chest x-ray to obtain for acute cardiopulmonary process interpreted by myself shows no acute findings. At this point I spoke with the hospitalist for admission. Impression: 1. Strokelike symptoms Lab Data Labs: Laboratory Results - last 24 hr 08/19/22 08/19/22 08/19/22 15:25 15:25 15:25 WBC 12.7 H RBC 4.65 Hgb 13.1 Hct 40.0 MCV 86.0 MCH 28.2 MCHC 32.8 RDW Std Deviation 45.5 H RDW Coeff of Amira 14.5 Plt Count 289 MPV 9.8 Immature Gran % (Auto) 0.400 Neut % (Auto) 73.3 H Lymph % (Auto) 17.3 L [place] % (Auto) 6.2 Eos % (Auto) 2.1 Baso % (Auto) 0.7 Absolute Neuts (auto) 9.3 H Absolute Lymphs (auto) 2.19 Nucleated RBC % 0 PT 14.2 INR 1.1 APTT 35.0 Sodium 138 Potassium 3.5 Chloride 106 Carbon Dioxide 27.0 Anion Gap 5 BUN 11 Creatinine 0.76 Estim Creat Clear Calc 72.16 Est GFR (MDRD) Af Amer 130 Est GFR (MDRD) Non-Af 108 BUN/Creatinine Ratio 14.5 Glucose 105 Calcium 8.5 Troponin I High Sens 10 Urine Opiates Screen Urine Methadone Screen Ur Barbiturates Screen Ur Phencyclidine Scrn Ur Amphetamines Screen MDMA (Ecstasy) Screen U Benzodiazepines Scrn Urine Cocaine Screen U Cannabinoids Screen Ur Drug Screen Comment Ethyl Alcohol 08/19/22 08/19/22 15:25 15:30 WBC RBC Hgb Hct MCV MCH MCHC RDW Std Deviation RDW Coeff of Amira Plt Count MPV Immature Gran % (Auto) Neut % (Auto) Lymph % (Auto) [place] % (Auto) Eos % (Auto) Baso % (Auto) Absolute Neuts (auto) Absolute Lymphs (auto) Nucleated RBC % PT INR APTT Sodium Potassium Chloride Carbon Dioxide Anion Gap BUN Creatinine Estim Creat Clear Calc Est GFR (MDRD) Af Amer Est GFR (MDRD) Non-Af BUN/Creatinine Ratio Glucose Calcium Troponin I High Sens Urine Opiates Screen NEGATIVE Urine Methadone Screen NEGATIVE Ur Barbiturates Screen NEGATIVE Ur Phencyclidine Scrn NEGATIVE Ur Amphetamines Screen NEGATIVE MDMA (Ecstasy) Screen NEGATIVE U Benzodiazepines Scrn NEGATIVE Urine Cocaine Screen NEGATIVE U Cannabinoids Screen NEGATIVE Ur Drug Screen Comment Ethyl Alcohol < 3.0 Radiography Diagnostic Testing: Clinical Impression(s) from Imaging Studies Brain CT 08/19/22 15:10 IMPRESSION: Chronic involutional changes of the brain. N.B. : The above Results were Read Back by Corbin Shea MD to Dr Ruslan DO, and understanding confirmed on 08/19/2022 15:27:11 (ET). Electronically Signed: Corbin Shea MD at 15:28 EST , ADDENDUM: 08/19/22 [id number] IMPRESSION: Chronic involutional changes of the brain. N.B. : The above Results were Read Back by Corbin Shea MD to Dr Ruslan DO, and understanding confirmed on 08/19/2022 15:27:11 (ET). Electronically Signed: Corbin Shea MD at 15:28 EST , Head/Neck CTA 08/19/22 15:14 IMPRESSION: Atherosclerotic plaque formation at the origins of both right and left internal carotid arteries causing less than 50% stenosis. Dominant right vertebral artery. N.B. : The above Results were Read Back by Corbin Shea MD to Jakob Mercer and understanding confirmed on 08/19/2022 15:45:04 (ET). Electronically Signed: Corbin Shea MD at 15:45 EST , ADDENDUM: 08/19/22 1552 IMPRESSION: Atherosclerotic plaque formation at the origins of both right and left internal carotid arteries causing less than 50% stenosis. Dominant right vertebral artery. N.B. : The above Results were Read Back by Corbin Shea MD to Jakob Mercer and understanding confirmed on 08/19/2022 15:45:04 (ET). Electronically Signed: Corbin Shea MD at 15:45 EST , Chest X-Ray 08/19/22 16:27 IMPRESSION: No acute cardiopulmonary pathology. Electronically Signed: Vic Ochoa MD at 16:41 EST , Discharge Plan Disposition Disposition: Acute Care Hospital [facility] Discharge Date/Time: 08/19/22 19:20
--- NOTE | 2022-08-19 15:14 | CT_ITS ---
STUDY: CTA HEAD AND NECK WITH CONTRAST REASON FOR EXAM: Male, 72 years old. Neuro deficit, acute, stroke suspected RADIATION DOSAGE (If Supplied By Facility): CTDIvol = ( 22.6 ) mGy, DLP = ( 729.11 ) mGycm TECHNIQUE: CT angiography was performed with a multi-detector CT scanner. Data acquisition was obtained from the skull base through the vertex following intravenous administration of IV 100mL [id number]-[id number]. MIP images were reconstructed from the axial data set. Post-processing of the angiographic images was performed, with multiplanar reformation and 3D reconstruction. Individualized dose optimization techniques were used for this CT. COMPARISON: Comparison is made with prior study dated 08/04/2022. FINDINGS: Normal bilateral petrous carotid arteries. There is calcified plaque formation of the right cavernous carotid artery, without a cross-sectional luminal stenosis. There is calcified plaque formation of the left cavernous carotid artery, without a cross-sectional luminal stenosis. Normal right A1 segments of the anterior cerebral artery. Normal left A1 segments of the anterior cerebral artery. Normal intact anterior communicating artery (ACOM). Normal bilateral A2 segments of the anterior cerebral arteries. Normal right M1 and M2 segments of the middle cerebral arteries, with a normal M1 bifurcation. Normal left M1 and M2 segments of the middle cerebral arteries, with a normal M1 bifurcation. There is a persistent origin of the right posterior cerebral artery with absence of the posterior communicating artery (PCOM). Normal left posterior communicating artery (PCOM). Normal bilateral vertebral arteries. Normal basilar artery with a normal basilar bifurcation. The visualized bilateral superior cerebellar (SCA) arteries are normal. Normal bilateral P1, P2 and visualized P3 segments of the posterior cerebral arteries. There is no demonstrated aneurysm of the [place]. AORTIC ARCH: There is atherosclerotic calcific plaque formation of the aortic arch and great vessels arising from the aortic arch, without a hemodynamically significant stenosis. There is a normal origin of the brachiocephalic, left common carotid, and left subclavian arteries. Calcific plaques at the origin of the great vessels of the neck. RIGHT CAROTID ARTERIES: Normal right common carotid artery (CCA). Normal right common carotid bulb. There is mild atherosclerotic plaque formation of the origin of the right internal carotid artery with less than 50% cross sectional diameter stenosis. Normal visualized cervical portion of the right internal carotid artery. Normal origin of the right external carotid artery (ECA). LEFT CAROTID ARTERIES: There is atherosclerotic plaque formation of the common carotid artery, but without a hemodynamically significant stenosis. Normal left common carotid bulb. There is mild atherosclerotic plaque formation of the origin of the left internal carotid artery with less than 50% cross sectional diameter stenosis. Normal visualized cervical portion of the left internal carotid artery. Normal origin of the left external carotid artery (ECA). VERTEBRAL ARTERIES: There is enhancement within the bilateral vertebral arteries with a small left vertebral artery, and a dominant right vertebral artery. Atherosclerotic plaque formation of the distal portions of both vertebral arteries. CT/STROKE CTA Head AND Neck W/Con IMPRESSION: Atherosclerotic plaque formation at the origins of both right and left internal carotid arteries causing less than 50% stenosis. Dominant right vertebral artery. N.B. : The above Results were Read Back by Corbin Shea MD to Jakob Mercer and understanding confirmed on 08/19/2022 15:45:04 (ET). Electronically Signed: Corbin Shea MD at 15:45 EST ,
--- NOTE | 2022-08-19 15:24 | NURSING ---
FACESHEET FAXED TO [facility]
--- NOTE | 2022-08-19 15:40 | NURSING ---
1501 STROKE ALERT CALLED PRIOR TO ARRIVAL
[2022-08-19 15:44] LABS: Absolute Lymphocyte Count 2.19 X10^3/uL (0.83-4.51); Absolute Neutrophil Count 9.3 X10^3/uL (2.0-7.7); Basophil# 0.09 X10^3/uL; Basophil% 0.7 % (0-1); Eosinophil# 0.27 X10^3/uL; Eosinophils% 2.1 % (0-5); Hemoglobin 13.1 g/dL (13.0-16.5); Lymphocyte # 2.19 X10^3/ul (0.83-4.51); Lymphocyte % 17.3 % (19-41); Mean Corp Hgb Conc 32.8 g/dL (32-36); Mean Corpuscular Hgb 28.2 pg (27.0-32.0); Mean Platelet Vol. 9.8 fl (6.2-12.0); Monocyte# 0.78 X10^3/uL; Monocyte% 6.2 % (0-10); NRBC Flagged by Analyzer 0 % (0-5); Neutrophil # 9.29 X10^3/uL (2.7-7.7); Neutrophil % 73.3 % (47-70); Platelet Count 289 K/mm3 (150-450); RBC Distribution Width CV 14.5 % (11.6-14.6); RBC Distribution Width SD 45.5 fl (35.1-43.9); Red Blood Count 4.65 M/mm3 (4.6-6.2); White Blood Count 12.7 K/mm3 (4.4-11.0)
[2022-08-19 15:51] LABS: International Normalized Ratio 1.1; Prothrombin Time (Protime)PT. 14.2 SECONDS (11.7-14.9)
[2022-08-19 15:53] LABS: Anion Gap 5 (5-15); BUN 11 mg/dL (7-18); BUN/Creat Ratio 14.5 RATIO (10-20); Calcium,Total 8.5 mg/dL (8.5-10.1); Chloride 106 mmol/L (98-107); Creatinine, Serum 0.76 mg/dL (0.70-1.30); EST Glomerular Filtration Rate 108 mL/min (>60); Est Glom Filt Rate - Afr Amer 130 mL/min (>60); Estimated Creatinine Clearance 72.16 ml/min; Glucose 105 mg/dL (74-106); Potassium 3.5 mmol/L (3.5-5.1); Sodium Level 138 mmol/L (136-145); Troponin-I HS 10 pg/mL (3.0-78.0)
[2022-08-19 16:15] LABS: Amphetamine Urine VISTA NEGATIVE (<1000 ng/mL); Barbiturate Urine VISTA NEGATIVE (< 200 ng/mL); Benzodiazepine Urine VISTA NEGATIVE (< 200 ng/mL); Cocaine Urine VISTA NEGATIVE (< 300 ng/mL); Ecstacy Urine VISTA NEGATIVE (< 500 ng/mL); Methadone Urine VISTA NEGATIVE (< 300 ng/mL); PCP Urine VISTA NEGATIVE (< 25 ng/mL); THC Urine VISTA NEGATIVE (< 50 ng/mL); Vista UDS pH Range 6
[2022-08-19] MEDS: Aspirin 81 MG TAB.CHEW 324 MG PO (16:27)
--- NOTE | 2022-08-19 16:27 | RAD_ITS ---
STUDY: X-RAY CHEST REASON FOR EXAM: Male, 72 years old. Neuro deficit, acute, stroke suspected TECHNIQUE: AP portable COMPARISON: August 04, 2022 FINDINGS: Minor bibasilar interstitial thickening. There is no demonstrated pleural abnormality. Normal size heart. Normal mediastinum and filemon. Normal visualized pulmonary arteries. Mildly calcified aortic arch and descending thoracic aorta. Dorsal spine and shoulders demonstrate degenerative change. Normal visualized ribs, and clavicles.. There is no demonstrated abnormality of the visualized soft tissue structures of the upper abdomen No significant change since prior exam. RAD/Chest 1 View IMPRESSION: No acute cardiopulmonary pathology. Electronically Signed: Vic Ochoa MD at 16:41 EST ,
[2022-08-19 16:48] LABS: Alcohol, Blood (Medical)-Serum < 3.0 mg/dL
--- NOTE | 2022-08-19 17:56 | NURSING ---
PCU TIA OBS KOR
--- NOTE | 2022-08-19 18:09 | CM.ED ---
Social Work Note Referral Source: Stroke Alert Referral Reason: Stroke Alert SW was available once patient arrived at ED to be an emotional support to patient and patient's family. No family present when patient arrived. SW contacted [employer] and inquired about patient's family and HCPOA pw. [facility] staff identified patient's nephew as someone to contact if needed, no HCPOA for patient. SW met with patient and introduced herself and role as [facility] Home Care Liaison. Patient was alert and watching TV in bed. SW engaged patient in conversation and inquired if he would like SW to contact any family members. Patient stated he wouldn't know who to contact. SW reviewed his nephew's contact information as it is listed in his file. Patient stated he was not interested in SW contacting his family, explaining they aren't worried about me so I am not worried about them. No other concerns or needs voiced at this time. SW remains available if other needs arise. Elisabet Brito FLIGHT TEST DATA ACQUISITION TECHNICIAN, [place]
--- NOTE | 2022-08-19 19:23 | PCM.HP.STD ---
HPI - General General Date of Admission: 08/19/22 Date of Service: 08/19/22 Chief Complaint: left sided facial droop HPI Narrative MACY BEY, is a 72 M with a PMh as outilined who presents via the ED with a complaint of left sided facial droop which was noticed this afternoon ~ 12:30. Patient says he was in his [facility], drinking beer. He said a nurse told him he had a right facial droop. He didnt notice anything out of the ordinary. He also complained of decreased left lower extremity sensation. He was recently admitted for stroke like symptoms and had a negative CT of the brain as well as MRI of the brain. Patient denied any extremity weakness, any slurred speech, any problem with swallowing or any other symptoms. Review of systems is otherwise negative. Vitals were BP of 162/81, OR of 68, RR of 19 and pulse ox of 93% on room air. CBC showed wbc of 12.7, hb of 13.1, and INR of 1.1. Chemistry was unremarkable. Urinalysis showed no evidence of UTI. [facility] reviewed him and recommended admission for stroke workup. FORMERLY [facility], [facility] Medical History Alcohol abuse Alcohol withdrawal Ankle fracture, right Cataract Cerebral vascular disease COPD (chronic obstructive pulmonary disease) Depression Elbow fracture, right Glaucoma HTN (hypertension) Hypertrophy of prostate with urinary obstruction Hypokalemia Obstructive sleep apnea Retinal detachment Smoker Stroke Suicide ideation UTI (urinary tract infection) Vitamin D deficiency Home Medications acetaminophen 325 mg tablet 325 mg PO QHS BACK PAIN 08/04/22 [History Last Taken 08/03/22] amlodipine 10 mg tablet 10 mg PO DAILY BP 08/04/22 [History Last Taken 08/04/22] aspirin 81 mg chewable tablet 81 mg PO DAILY HEALTH 08/04/22 [History Last Taken 08/04/22] bimatoprost 0.01 % eye drops (Lumigan) 1 drp RIGHT EYE QHS 08/04/22 [History Last Taken 08/03/22] cholecalciferol (vitamin D3) 25 mcg (1,000 unit) tablet 25 mcg PO DAILY SUPPLEMENT 08/04/22 [History Last Taken 08/04/22] cyanocobalamin (vitamin B-12) 500 mcg tablet 500 mcg PO DAILY SUPPLEMENT 08/04/22 [History Last Taken 08/04/22] hydroxyzine pamoate 50 mg capsule 50 mg PO TID ANXIETY 08/04/22 [History Last Taken 08/04/22] lisinopril 20 mg tablet 20 mg PO BID BP 08/04/22 [History Last Taken 08/04/22] loratadine 10 mg tablet 10 mg PO QHS ALLERGIES 08/04/22 [History Last Taken 08/03/22] melatonin 5 mg tablet 10 mg PO QHS SLEEP 08/04/22 [History Last Taken 08/03/22] metoprolol tartrate 25 mg tablet 12.5 mg PO BID BP 08/04/22 [History Last Taken 08/04/22] mirabegron 25 mg tablet,extended release 24 hr (Myrbetriq) 25 mg PO DAILY BLADDER 08/04/22 [History Last Taken 08/04/22] mirtazapine 30 mg tablet 30 mg PO QHS SLEEP 08/04/22 [History Last Taken 08/03/22] montelukast 10 mg tablet 10 mg PO QHS ALLERGIES 08/04/22 [History Last Taken 08/03/22] multivitamin 1 tab PO DAILY SUPPLEMENT 08/04/22 [History Last Taken 08/04/22] potassium chloride 10 mEq capsule,extended release 20 meq PO DAILY POTASSIUM 08/04/22 [History Last Taken 08/04/22] tamsulosin 0.4 mg capsule 0.4 mg PO QHS PROSTATE 08/04/22 [History Last Taken 08/03/22] timolol maleate 0.5 % eye drops 1 drp RIGHT EYE BID 08/04/22 [History Last Taken 08/04/22] trazodone 100 mg tablet 100 mg PO QHS SLEEP 08/04/22 [History Last Taken 08/03/22] trazodone 50 mg tablet 25 mg PO QHS SLEEP 08/04/22 [History Last Taken 08/03/22] atorvastatin 80 mg tablet 80 mg PO QHS 30 days #30 tabs 08/07/22 [Rx Last Taken Unknown] clopidogrel 75 mg tablet 75 mg PO DAILY 30 days #30 tabs 08/07/22 [Rx Last Taken Unknown] pravastatin 40 mg tablet 40 mg PO DAILY 08/19/22 [History Last Taken Unknown] Allergy/AdvReac Type Severity Reaction Status Date / Time No Known Allergies Allergy Verified 08/19/22 19:47 Surgical History H/O cataract extraction Hx of tonsillectomy Social History housing: halfway Smoking Status: Current every day smoker tobacco type: cigarettes alcohol intake: current details: Patient drinks 2 tall boys daily on a regular basis substance use type: does not use ROS Constitutional Constitutional: Denies anorexia, chills, fatigue, fever(s), malaise or weakness Eyes Eyes: Denies change in vision ENT HEENT: Denies dysphagia, headache(s) or sore throat Cardiovascular Cardiovascular: Denies chest pain, dyspnea on exertion, edema, lightheadedness, orthopnea, palpitations, paroxysmal nocturnal dyspnea, rapid heart rate or syncope Respiratory/Chest Respiratory/Chest: Denies cough, dyspnea, shortness of breath at rest or shortness of breath with exertion Gastrointestinal Gastrointestinal: Denies abdominal pain, constipation, diarrhea, nausea or vomiting Genitourinary Genitourinary: Denies dysuria Musculoskeletal Musculoskeletal: Denies arthralgias or back pain Neurologic Neurologic: Denies confusion, dizziness, focal weakness, headache(s), numbness or seizure-like activity Psychiatric Psychiatric: Reports anxiety and depression Endocrine Endocrinology: Denies change in body appearance Vital Signs Vital Signs Vital Signs: 08/19/22 15:14 08/19/22 15:24 08/19/22 15:34 Temperature 98.1 F Temperature Source Oral Pulse Rate 62 75 Respiratory Rate 20 H 17 Blood Pressure 158/82 H 176/124 H Blood Pressure Mean 107 141 Pulse Ox 92 92 Oxygen Delivery Method Room Air Room Air 08/19/22 15:35 08/19/22 15:43 08/19/22 15:58 Temperature Temperature Source Pulse Rate 65 65 Respiratory Rate 19 H 22 H Blood Pressure 146/75 H 159/97 H Blood Pressure Mean 98 117 Pulse Ox 92 92 Oxygen Delivery Method Room Air Room Air 08/19/22 16:42 08/19/22 16:42 08/19/22 16:28 Temperature Temperature Source Pulse Rate 65 70 Respiratory Rate 18 Blood Pressure 162/90 H Blood Pressure Mean 114 Pulse Ox 93 Oxygen Delivery Method Room Air Room Air 08/19/22 16:58 08/19/22 17:28 08/19/22 17:58 Temperature Temperature Source Pulse Rate 69 67 72 Respiratory Rate 16 15 17 Blood Pressure 165/90 H 145/88 H 145/83 H Blood Pressure Mean 115 107 103 Pulse Ox 93 94 93 Oxygen Delivery Method Room Air Room Air Room Air 08/19/22 18:12 08/19/22 18:28 08/19/22 16:58 Temperature 97.8 F Temperature Source Oral Pulse Rate 75 68 68 Respiratory Rate 17 19 H 15 Blood Pressure 145/83 H 162/81 H 145/83 H Blood Pressure Mean 103 108 103 Pulse Ox 93 93 93 Oxygen Delivery Method Room Air Room Air Room Air Weight Weight: 224 lb 6.889 oz Body Mass Index (BMI) 31.3 Physical Exam Const alert, oriented x3 and no apparent distress General Appearance: cooperative HEENT normocephalic, head/scalp atraumatic, hearing grossly normal bilaterally and moist oral mucous membranes Mouth: oral and palatal mucosa normal Eyes PERRL, EOMs intact bilaterally and conjunctivae normal Neck no lymphadenopathy, supple and no JVD Resp normal respiratory effort, no retractions, no use of accessory muscles and clear to auscultation bilaterally Cardio regular rate, regular rhythm, S1 normal heart sound, S2 normal heart sound and no murmurs GI normal to inspection, nondistended, normoactive bowel sounds, soft to palpation, non-tender and non-distended Extremity normal to inspection, full ROM and no clubbing, cyanosis or edema Neuro oriented x3 Neuro Narrative: has left sided complete facial nerve palsy, involving the left side of the forehead also; cranial nerves otherwise all intact Sensorium / Orientation: awake, alert, oriented to person and oriented to place Speech: speech normal Motor Exam: strength 5/5 throughout Psych affect normal Results Lab / Micro Data Result Diagrams: 08/19/22 15:25 08/19/22 15:25 Labs: Laboratory Results - last 24 hr 08/19/22 15:25: WBC 12.7 H, RBC 4.65, Hgb 13.1, Hct 40.0, MCV 86.0, MCH 28.2, MCHC 32.8, RDW Std Deviation 45.5 H, RDW Coeff of Amira 14.5, Plt Count 289, MPV 9.8, Immature Gran % (Auto) 0.400, Neut % (Auto) 73.3 H, Lymph % (Auto) 17.3 L, [place] % (Auto) 6.2, Eos % (Auto) 2.1, Baso % (Auto) 0.7, Absolute Neuts (auto) 9.3 H, Absolute Lymphs (auto) 2.19, Nucleated RBC % 0 08/19/22 15:25: PT 14.2, INR 1.1, APTT 35.0 08/19/22 15:25: Sodium 138, Potassium 3.5, Chloride 106, Carbon Dioxide 27.0, Anion Gap 5, BUN 11, Creatinine 0.76, Estim Creat Clear Calc 72.16, Est GFR (MDRD) Af Amer 130, Est GFR (MDRD) Non-Af 108, BUN/Creatinine Ratio 14.5, Glucose 105, Calcium 8.5, Troponin I High Sens 10 08/19/22 15:25: Ethyl Alcohol < 3.0 08/19/22 15:30: Urine Opiates Screen NEGATIVE, Urine Methadone Screen NEGATIVE, Ur Barbiturates Screen NEGATIVE, Ur Phencyclidine Scrn NEGATIVE, Ur Amphetamines Screen NEGATIVE, MDMA (Ecstasy) Screen NEGATIVE, U Benzodiazepines Scrn NEGATIVE, Urine Cocaine Screen NEGATIVE, U Cannabinoids Screen NEGATIVE, Ur Drug Screen Comment Radiology Impression Brain CT 08/19/22 15:10 IMPRESSION: Chronic involutional changes of the brain. N.B. : The above Results were Read Back by Corbin Shea MD to Dr Ruslan DO, and understanding confirmed on 08/19/2022 15:27:11 (ET). Electronically Signed: Corbin Shea MD at 15:28 EST , ADDENDUM: 08/19/22 1534 IMPRESSION: Chronic involutional changes of the brain. N.B. : The above Results were Read Back by Corbin Shea MD to Dr Ruslan DO, and understanding confirmed on 08/19/2022 15:27:11 (ET). Electronically Signed: Corbin Shea MD at 15:28 EST , Head/Neck CTA 08/19/22 15:14 IMPRESSION: Atherosclerotic plaque formation at the origins of both right and left internal carotid arteries causing less than 50% stenosis. Dominant right vertebral artery. N.B. : The above Results were Read Back by Corbin Shea MD to Jakob Mercer and understanding confirmed on 08/19/2022 15:45:04 (ET). Electronically Signed: Corbin Shea MD at 15:45 EST , ADDENDUM: 08/19/22 1552 IMPRESSION: Atherosclerotic plaque formation at the origins of both right and left internal carotid arteries causing less than 50% stenosis. Dominant right vertebral artery. N.B. : The above Results were Read Back by Corbin Shea MD to Jakob Mercer and understanding confirmed on 08/19/2022 15:45:04 (ET). Electronically Signed: Corbin Shea MD at 15:45 EST , Chest X-Ray 08/19/22 16:27 IMPRESSION: No acute cardiopulmonary pathology. Electronically Signed: Vic Ochoa MD at 16:41 EST , Assessment & Plan Assessment/Plan (1) Facial droop: PLAN: Plan #Left facial droop to rule out a stroke last known well was ~ 12:30PM today has left sided complete facial droop, including the forehead. CT of the brain showed no acute intracranial pathology was admitted ~ 2 weeks ago with similar symptoms; MRI of the brain was negative for a stroke> CTA of hte head and neck on 08/04/2022 showed bilateral carotid atherosclerosis without significant stenosis or large vessel occlusion; moderate stenosis of hte intracranial vertebral arteries bilaterally. 2D echo from 08/04/2022 showed normal LV size with normal LV systolic function and EF of 65%m with negative contrast study. get another MRI of hte brain tomorrow. He did get another CTA of the head and neck today which showed mild atherosclerotic plaque formation at the origin of the right and left internal carotid arteries with less than 50% stenosis PT/OT consult fall precautions if MRI of brain is negiitve, then Morgan;s palsy could be a consideration Already on aspirin, high intensity statin and Plavix #Hypertension; hold BP meds to allow for permissive hypertension in case he does have a stroke. #CHronic hypoxic respiratory failure due to COPD on 2L at home breathing treatment with bronchodilators #BPH: on flomax #Alcohol use disorder drinks 2 tall boys daily. His last drink was ~ 12;30 today, when the facial droop was noticed not in withdrawal counseled to quit thiamine, folic acid and multivite DVT prophylaxis: lovenox Code status: full code Patient counseled extensively about different types of CODE STATUS including full code, DNR CCA and DNR CCA. Patient elects to be full code. Total [id number] time 17 minutes. Charges/Coding Visit Charges OBSV E&M: 96597 Observ/hosp same date L2 Procedures Hospitalists Procedures: 73939 Advncd Care Plan 30 Min
[2022-08-19] MEDS: Timolol 0.5% 5ML OPTH.BTL 1 DRP RIGHT EYE (22:23)
[2022-08-19] MEDS: traZODone 50 MG Tablet 25 MG PO (22:24)
[2022-08-19] MEDS: Latanoprost 0.005% 1 Bottle 1 DRP RIGHT EYE (22:24)
[2022-08-19] MEDS: Atorvastatin Calcium 80 MG Tablet PO (22:24)
[2022-08-19] MEDS: traZODone 100 MG Tablet PO (22:24)
[2022-08-19] MEDS: Montelukast 10 MG Tablet PO (22:24)
[2022-08-19] MEDS: MELATONIN 10 MG TABLET PO (22:24)
[2022-08-19] MEDS: Loratadine 10 MG Tablet PO (22:24)
[2022-08-19] MEDS: Acetaminophen 325 MG Tablet PO (22:25)
[2022-08-19] MEDS: Mirtazapine 30 MG Tablet PO (22:25)
[2022-08-19] MEDS: hydrOXYzine PAM 25 MG Capsule 50 MG PO (22:25)
[2022-08-19] MEDS: Tamsulosin HCl 0.4 MG Capsule PO (22:25)
[2022-08-20] VITALS (7 sets, daily range): BP systolic 144–158; BP diastolic 79–96; PULSE 62–70; RESP 12–18; TEMP 36.6–37.1; O2SAT 91–93; BMI 31.8
[2022-08-20] MEDS: 0.9% Saline Lock 10 ML Syringe IV (04:40)
[2022-08-20] MEDS: hydrOXYzine PAM 25 MG Capsule 50 MG PO ×2 (04:40→14:09)
[2022-08-20 05:43] LABS: Absolute Lymphocyte Count 1.88 X10^3/uL (0.83-4.51); Absolute Neutrophil Count 5.8 X10^3/uL (2.0-7.7); Basophil# 0.07 X10^3/uL; Basophil% 0.8 % (0-1); Eosinophil# 0.33 X10^3/uL; Eosinophils% 3.7 % (0-5); Hematocrit 43.7 % (40-54); Hemoglobin 14.3 g/dL (13.0-16.5); Lymphocyte # 1.88 X10^3/ul (0.83-4.51); Lymphocyte % 21.2 % (19-41); Mean Corp Hgb Conc 32.7 g/dL (32-36); Mean Corpuscular Hgb 28.3 pg (27.0-32.0); Mean Corpuscular Volume 86.4 fL (80-94); Mean Platelet Vol. 9.7 fl (6.2-12.0); Monocyte# 0.73 X10^3/uL; Monocyte% 8.2 % (0-10); NRBC Flagged by Analyzer 0 % (0-5); Neutrophil # 5.82 X10^3/uL (2.7-7.7); Neutrophil % 65.8 % (47-70); Platelet Count 278 K/mm3 (150-450); RBC Distribution Width CV 14.5 % (11.6-14.6); RBC Distribution Width SD 45.4 fl (35.1-43.9); Red Blood Count 5.06 M/mm3 (4.6-6.2); White Blood Count 8.9 K/mm3 (4.4-11.0)
[2022-08-20 06:07] LABS: Anion Gap 7 (5-15); BUN 9 mg/dL (7-18); BUN/Creat Ratio 12.6 RATIO (10-20); Calcium,Total 8.9 mg/dL (8.5-10.1); Chloride 105 mmol/L (98-107); Creatinine, Serum 0.72 mg/dL (0.70-1.30); EST Glomerular Filtration Rate 115 mL/min (>60); Est Glom Filt Rate - Afr Amer 139 mL/min (>60); Estimated Creatinine Clearance 69.96 ml/min; Glucose 97 mg/dL (74-106); Sodium Level 138 mmol/L (136-145)
--- NOTE | 2022-08-20 07:00 | MRI_ITS ---
EXAM: MR HEAD WITHOUT AND WITH INTRAVENOUS CONTRAST CLINICAL INDICATION: Left facial droop, numbness and slurred speech. TECHNIQUE: Multiplanar and multisequence MR images of the brain were obtained without and with intravenous contrast. This report was created using Proficient report generation technology. CONTRAST: IV 20ml Clariscan COMPARISON: MRI brain without contrast 08/05/2022. FINDINGS: BRAIN AND EXTRA-AXIAL SPACES: T2 FLAIR hyperintensity foci in the white matter of both cerebral hemispheres are chronic white matter ischemic changes. Following IV contrast administration, there are no abnormally enhancing lesions intra-axially and extra-axially. Old lacunar cystic infarct in the left paracentral pontine tegmentum is unchanged. No intra- or extra-axial hemorrhage. Posterior fossa structures are unremarkable. Ventricles are appropriate for age. No hydrocephalus. Basal cisterns are patent. No diffusion restriction to suspect acute or subacute ischemic infarct. No midline shift and no mass effects. SELLA: Unremarkable. Normal sella turcica, pituitary gland, infundibular stalk, optic chiasm and hypothalamus. AUDITORY SYSTEM: Unremarkable. The internal auditory canals are patent. BONES/JOINTS: Unremarkable. No discrete lytic or blastic abnormalities. SINUSES: Unremarkable as visualized. Clear. MASTOID AIR CELLS: Unremarkable as visualized. Clear. ORBITS: Unremarkable as visualized. Both globes, extraocular muscles, optic nerves and retrobulbar fat appear unremarkable. VASCULATURE: Unremarkable as visualized. Normal flow voids in the major intracranial circulation. MRI/Brain W/WO Contrast IMPRESSION: 1. No MRI evidence of acute or subacute ischemic infarct or acute abnormality. 2. Old lacunar cystic infarct in the left paracentral pontine tegmentum and multiple chronic white matter ischemic changes in both cerebral hemispheres. 3. No abnormal contrast enhancing lesions intra-axially and extra-axially. 4. No significant interval change when compared to MRI brain without contrast dated 08/05/2022. Electronically Signed: True Guevara MD at 10:29 EST ,
--- NOTE | 2022-08-20 09:18 | NURSING ---
Home event monitor removed at this time for MRI and is within patient's possession.
[2022-08-20] MEDS: Potassium Chloride Oral Tablet 20 MEQ PO (10:29)
[2022-08-20] MEDS: Mirabegron 25 MG TAB.ER.24H PO (10:30)
[2022-08-20] MEDS: Aspirin 81 MG TAB.CHEW PO (10:30)
[2022-08-20] MEDS: Multivitamins,Therapeutic Tablet 1 TABLET PO (10:30)
[2022-08-20] MEDS: Cyanocobalamin 500 MCG Tablet PO (10:30)
[2022-08-20] MEDS: Clopidogrel Bisulfate 75 MG Tablet PO (10:31)
[2022-08-20] MEDS: Timolol 0.5% 5ML OPTH.BTL 1 DRP RIGHT EYE ×2 (10:31→14:30)
[2022-08-20] MEDS: Cholecalciferol (VIT D3) 25 MCG TABLET (1,000 UNITS) PO (10:32)
--- NOTE | 2022-08-20 11:27 | CASEMGMT ---
Social Work Pt is here from [facility]. SW called [facility], spoke w/Rosenda, confirmed that pt is from [facility]. As per Rosenda, pt gets around on his own there, she anticipates pt will be able to return at discharge. JIM faxed updates, PT/OT are still pending. JIM spoke w/pt in room, confirmed that pt is from [facility] and he plans to return. Pt states gets around with a rollator. Pt gets assist with meds, meals, and showering. We spoke about pt returning possibly today. Pt will need a wheelchair van. Once pt is ready for discharge, JIM will send instructions to [facility] and set up wheelchair van to take him back. Maria Fernanda ALVAREZ
--- NOTE | 2022-08-20 11:39 | PCM.DC.SUM ---
Providers Date of Admission: 08/20/22 Date of Discharge: 08/20/22 Primary Care Physician: Dr. Edin Cardenas MD Reason For Visit: TIA Diagnosis Discharge Diagnosis (1) Facial droop: Status: Acute Code(s): R29.810 - Facial weakness Medications at Discharge Home Medications acetaminophen 325 mg tablet 650 mg PO QHS BACK PAIN 08/04/22 amlodipine 10 mg tablet 10 mg PO DAILY BP 08/04/22 aspirin 81 mg chewable tablet 81 mg PO DAILY HEALTH 08/04/22 bimatoprost 0.01 % eye drops (Lumigan) 1 drp RIGHT EYE QHS 08/04/22 cholecalciferol (vitamin D3) 25 mcg (1,000 unit) tablet 25 mcg PO DAILY SUPPLEMENT 08/04/22 cyanocobalamin (vitamin B-12) 500 mcg tablet 500 mcg PO DAILY SUPPLEMENT 08/04/22 hydroxyzine pamoate 50 mg capsule 50 mg PO TID ANXIETY 08/04/22 lisinopril 20 mg tablet 20 mg PO BID BP 08/04/22 loratadine 10 mg tablet 10 mg PO QHS ALLERGIES 08/04/22 melatonin 5 mg tablet 10 mg PO QHS SLEEP 08/04/22 metoprolol tartrate 25 mg tablet 12.5 mg PO BID BP 08/04/22 mirabegron 25 mg tablet,extended release 24 hr (Myrbetriq) 25 mg PO DAILY BLADDER 08/04/22 mirtazapine 30 mg tablet 30 mg PO QHS SLEEP 08/04/22 montelukast 10 mg tablet 10 mg PO QHS ALLERGIES 08/04/22 multivitamin 1 tab PO DAILY SUPPLEMENT 08/04/22 potassium chloride 10 mEq capsule,extended release 20 meq PO DAILY POTASSIUM 08/04/22 tamsulosin 0.4 mg capsule 0.4 mg PO QHS PROSTATE 08/04/22 timolol maleate 0.5 % eye drops 1 drp RIGHT EYE BID 08/04/22 trazodone 100 mg tablet 100 mg PO QHS SLEEP 08/04/22 trazodone 50 mg tablet 25 mg PO QHS SLEEP 08/04/22 atorvastatin 80 mg tablet 80 mg PO QHS 30 days #30 tabs 08/07/22 clopidogrel 75 mg tablet 75 mg PO DAILY 30 days #30 tabs 08/07/22 carboxymethylcellulose sodium 1 % eye drops (Artificial Tears (carboxymethylcellulose)) 1 drp LEFT EYE Q4H #15 mL 08/20/22 prednisone 20 mg tablet 60 mg PO DAILY #18 tabs 08/20/22 valacyclovir 1 gram tablet 1,000 mg PO Q8H #21 tabs 08/20/22 Hospital Course Operations None Procedures EKG and - (CTA head neck/MRI brain) Summary of Care Provided Minutes Spent on Discharge: 38 Hospital Course: Mr. Dominguez is a 72-year-old white male who presented to the emergency department was coming hospital on 08/19/2022 with left-sided facial droop. The droop started about 12:30 in the afternoon and occurred while he was drinking beer. The patient was recently admitted here from 08/04/2022 through 08/07/2022 and diagnosed with a left-sided stroke at that time. A 30-day event monitor was ordered as well as aspirin and Plavix for 90 days were initiated per neurology's recommendations. He was also found to have a urinary tract infection and completed antibiotics at that time. At that time he had right facial droop with right-sided ataxia and dysarthria. The MRI was read as no acute stroke however neurology was concerned with his symptoms and their review of the MRI they felt that there was a stroke present. He has pending appointment with neurology. At this admission he had left-sided facial droop that appears to involve his entire left face. He had a recent echocardiogram that showed no PFO. CTA of the head and neck was performed again with this admission and showed stable atherosclerosis of bilateral internal carotid arteries with less than 50% stenosis which is the same as his previous CTA done 2 weeks ago. An MRI of his brain was performed given the above findings and he was found to have no evidence of acute or subacute infarct with no change from his MRI on 08/05/2022. It appears that he has Morgan's palsy on my evaluation. It seems that his symptoms are really only involving his face at this time. He has facial droop on the left side and decreased muscle strength in his forehead as well. He denies any recent viral illnesses. We started prednisone 60 mg daily which she will do for 7 days. We will also start valacyclovir 1000 mg 3 times daily for 7 days. He is to maintain his aspirin and Plavix for his previous admission and no other medication changes were made at this time. I have instructed him to tape his eye shut at night to protect his cornea as he does have some weakness in his eyelid however at this time he is able to completely close his eye. We have also ordered saline eyedrops for him that he is to use every 4 hours while awake at home to help keep his cornea hydrated and he is to continue these until the strength improves and his left eyelid. I have asked him to follow-up with his primary care physician within the next 1 to 2 weeks. He already has pending follow-up with neurology for previous stroke. He was discharged back to his facility (assisted living) in stable condition on 08/20/2022. Discharge diagnoses: Left-sided Morgan's palsy Recent stroke Hypokalemia-potassium replaced Carotid artery stenosis-less than 50% bilaterally Glaucoma BPH Vitamin D deficiency COPD Hypertension Hyperlipidemia Depression Alcohol abuse Tobacco abuse Physical Exam Const alert, oriented x3, no apparent distress and well nourished Constitutional Narrative: Obese, older white male, sitting up in bed, nursing at bedside, appears comfortable, nontoxic, somewhat disheveled however this is his baseline General Appearance: cooperative, comfortable and well developed Orientation / Consciousness: awake, oriented to person, oriented to place and oriented to time Exam Limitations: no limitations Nutritional Appearance: obese HEENT normocephalic, head/scalp atraumatic and moist oral mucous membranes HEENT Narrative: Mild hearing loss, dentition is poor, Mallampati is 2 Eyes PERRL and EOMs intact bilaterally Eyes Narrative: Conjunctive are injected on the left side with decreased ability to tightly close left eye however he is able to completely close left eye with no cornea exposed at this time, no scleral icterus Neck no lymphadenopathy and supple Neck Narrative: Trachea midline, no thyroid enlargement Resp normal respiratory effort, no retractions and no use of accessory muscles Resp Narrative: Diffusely diminished with few end expiratory wheezes Auscultation: wheezes; Negative for crackles or rhonchi Cardio regular rate, regular rhythm, S1 normal heart sound, S2 normal heart sound, no murmurs, no rub, no gallops and no clicks GI normal to inspection, nondistended, normoactive bowel sounds, soft to palpation and non-tender Extremity no clubbing, cyanosis or edema Extremity Narrative: 2+ pedal, radial pulses Skin no rashes or lesions noted, no wounds, skin turgor normal and no jaundice Neuro oriented x3, moves all extremities and no focal motor deficits Neuro Narrative: Left-sided 7th cranial nerve with significant weakness in all branches consistent with Morgan's palsy, patient is able to completely close eye at this time however eyelid musculature is weak, all other cranial nerves are normal, reflexes are 2+ Coordination / Balance: [id number] test normal Speech: speech normal Psych affect normal Psych Narrative: Pleasant, appropriately interactive Weight / BMI Weight Weight: 100.8 kg Body Mass Index (BMI) 31.8 ABG / Lab / Microbiology Data Result Diagrams: 08/20/22 04:57 08/20/22 04:57 Laboratory: Laboratory Results - last 24 hr 08/19/22 15:25: WBC 12.7 H, RBC 4.65, Hgb 13.1, Hct 40.0, MCV 86.0, MCH 28.2, MCHC 32.8, RDW Std Deviation 45.5 H, RDW Coeff of Amira 14.5, Plt Count 289, MPV 9.8, Immature Gran % (Auto) 0.400, Neut % (Auto) 73.3 H, Lymph % (Auto) 17.3 L, Rawlins % (Auto) 6.2, Eos % (Auto) 2.1, Baso % (Auto) 0.7, Absolute Neuts (auto) 9.3 H, Absolute Lymphs (auto) 2.19, Nucleated RBC % 0 08/19/22 15:25: PT 14.2, INR 1.1, APTT 35.0 08/19/22 15:25: Sodium 138, Potassium 3.5, Chloride 106, Carbon Dioxide 27.0, Anion Gap 5, BUN 11, Creatinine 0.76, Estim Creat Clear Calc 72.16, Est GFR (MDRD) Af Amer 130, Est GFR (MDRD) Non-Af 108, BUN/Creatinine Ratio 14.5, Glucose 105, Calcium 8.5, Troponin I High Sens 10 08/19/22 15:25: Ethyl Alcohol < 3.0 08/19/22 15:30: Urine Opiates Screen NEGATIVE, Urine Methadone Screen NEGATIVE, Ur Barbiturates Screen NEGATIVE, Ur Phencyclidine Scrn NEGATIVE, Ur Amphetamines Screen NEGATIVE, MDMA (Ecstasy) Screen NEGATIVE, U Benzodiazepines Scrn NEGATIVE, Urine Cocaine Screen NEGATIVE, U Cannabinoids Screen NEGATIVE, Ur Drug Screen Comment 08/20/22 04:57: WBC 8.9, RBC 5.06, Hgb 14.3, Hct 43.7, MCV 86.4, MCH 28.3, MCHC 32.7, RDW Std Deviation 45.4 H, RDW Coeff of Amira 14.5, Plt Count 278, MPV 9.7, Immature Gran % (Auto) 0.300, Neut % (Auto) 65.8, Lymph % (Auto) 21.2, Rawlins % (Auto) 8.2, Eos % (Auto) 3.7, Baso % (Auto) 0.8, Absolute Neuts (auto) 5.8, Absolute Lymphs (auto) 1.88, Nucleated RBC % 0 08/20/22 04:57: Sodium 138, Potassium 3.0 L, Chloride 105, Carbon Dioxide 26.0, Anion Gap 7, BUN 9, Creatinine 0.72, Estim Creat Clear Calc 69.96, Est GFR (MDRD) Af Amer 139, Est GFR (MDRD) Non-Af 115, BUN/Creatinine Ratio 12.6, Glucose 97, Calcium 8.9 Radiography Diagnostic Testing: Radiology Impression Brain CT 08/19/22 15:10 IMPRESSION: Chronic involutional changes of the brain. N.B. : The above Results were Read Back by Corbin Shea MD to Dr Ruslan DO, and understanding confirmed on 08/19/2022 15:27:11 (ET). Electronically Signed: Corbin Shea MD at 15:28 EST , ADDENDUM: 08/19/22 1534 IMPRESSION: Chronic involutional changes of the brain. N.B. : The above Results were Read Back by Corbin Shea MD to Dr Ruslan DO, and understanding confirmed on 08/19/2022 15:27:11 (ET). Electronically Signed: Corbin Shea MD at 15:28 EST , Head/Neck CTA 08/19/22 15:14 IMPRESSION: Atherosclerotic plaque formation at the origins of both right and left internal carotid arteries causing less than 50% stenosis. Dominant right vertebral artery. N.B. : The above Results were Read Back by Corbin Shea MD to Jakob Mercer and understanding confirmed on 08/19/2022 15:45:04 (ET). Electronically Signed: Corbin Shea MD at 15:45 EST , ADDENDUM: 08/19/22 1552 IMPRESSION: Atherosclerotic plaque formation at the origins of both right and left internal carotid arteries causing less than 50% stenosis. Dominant right vertebral artery. N.B. : The above Results were Read Back by Corbin Shea MD to Jakob Mercer and understanding confirmed on 08/19/2022 15:45:04 (ET). Electronically Signed: Corbin Shea MD at 15:45 EST , Chest X-Ray 08/19/22 16:27 IMPRESSION: No acute cardiopulmonary pathology. Electronically Signed: Vic Ochoa MD at 16:41 EST , Brain MRI 08/20/22 07:00 IMPRESSION: 1. No MRI evidence of acute or subacute ischemic infarct or acute abnormality. 2. Old lacunar cystic infarct in the left paracentral pontine tegmentum and multiple chronic white matter ischemic changes in both cerebral hemispheres. 3. No abnormal contrast enhancing lesions intra-axially and extra-axially. 4. No significant interval change when compared to MRI brain without contrast dated 08/05/2022. Electronically Signed: True Guevara MD at 10:29 EST , D/C Instructions Discharge Diet: Low fat / Low cholesterol Discharge Activity: Return to Normal Activity Meaningful Use Info Meaningful Use Diagnoses (Choose all that apply): None applicable Discharge Plan Admission Admit Date/Time: 08/20/22 08:27 Primary Reason for Your Visit: L Facial Droop Attending Provider: Renuka Carreno Primary Care Provider: Edin Cardenas Consulting Providers: Rika Tiwari Instructions Patient Instructions: ED Morgan's Palsy Additional Instructions / Restrictions: 1. Complete course of steroids as ordered 2. Complete antivirals as ordered (valacyclovir) 3. Use eyedrops every 4 hours while awake in the left eye to maintain lubrication until eye muscles regain strength 4. Please obtain paper tape and tape your left eye shut at night until eye musculature strength has resolved Discharge Orders/Prescriptions Prescriptions: New prednisone 20 mg tablet 60 mg PO DAILY Qty: 18 0RF Rx Instructions: Take 3 tablets daily x6 days valacyclovir 1 gram tablet 1,000 mg PO Q8H Qty: 21 0RF Artificial Tears (cmc) 1 % drops 1 drp LEFT EYE Q4H Qty: 15 2RF Continued potassium chloride 10 mEq capsule, extended release 20 meq PO DAILY Label Comments: 2 CAPSULES (20MEQ) BYAMOUTH DAILY DX: HYPOKALEMIA / NURSE TO REORDER trazodone 50 mg tablet 25 mg PO QHS Label Comments: 1/2 TABLET (25MG) BYTMOUTH AT BEDTIME ([id number]=821OL) DX: / NURSE TO REORDER lisinopril 20 mg tablet 20 mg PO BID Label Comments: 1 TABLET BY MOUTH TWICE AIDAY DX: HYPERTENSION / NURSE TO REORDER hydroxyzine pamoate 50 mg capsule 50 mg PO TID Label Comments: 1 CAPSULE BY MOUTH THREEATIMES DAILY DX:ANXIETY/RNURSE TO REORDER tamsulosin 0.4 mg capsule 0.4 mg PO QHS Label Comments: 1 CAPSULE BY MOUTH ATMBEDTIME DX: / NURSE TOOREORDER trazodone 100 mg tablet 100 mg PO QHS Label Comments: 1 TABLET BY MOUTH ATTBEDTIME DX: INSOMNIA / NURSE TO REORDER amlodipine 10 mg tablet 10 mg PO DAILY Label Comments: 1 TABLET BY MOUTH DAILYIDX: HYPERTENSION / NURSERTO REORDER mirtazapine 30 mg tablet 30 mg PO QHS Label Comments: 1 TABLET BY MOUTH ATHBEDTIME DX: DEPRESSION /GNURSE TO REORDER montelukast 10 mg tablet 10 mg PO QHS Label Comments: 1 TABLET BY MOUTH ATTBEDTIME DX: / NURSE TODREORDERE timolol maleate 0.5 % drops 1 drp RIGHT EYE BID Label Comments: 1 DROP INTO RIGHT EYE 2ITIMES A DAY DX: loratadine 10 mg tablet 10 mg PO QHS Label Comments: 1 TABLET BY MOUTH ATABEDTIME DX: ALLERGIC RHINITIS / NURSE TO REORDER metoprolol tartrate 25 mg tablet 12.5 mg PO BID Label Comments: 1/2 TABLET (12.5MG) BYOMOUTH TWICE DAILY DX:ESSENTIAL HYPERTENSION/ NURSE TO REORDER Lumigan 0.01 % drops 1 drp RIGHT EYE QHS Label Comments: 1 DROP INTO RIGHT EYE ATSBEDTIME Myrbetriq 25 mg tablet extended release 24 hr 25 mg PO DAILY Label Comments: 1 TABLET BY MOUTH DAILY /ONURSE TO REORDER/ multivitamin Tablet 1 tab PO DAILY acetaminophen 325 mg Tablet 650 mg PO QHS cyanocobalamin (vitamin B-12) 500 mcg Tablet 500 mcg PO DAILY aspirin 81 mg Tablet,Chewable 81 mg PO DAILY cholecalciferol (vitamin D3) 25 mcg (1,000 unit) Tablet 25 mcg PO DAILY melatonin 5 mg Tablet 10 mg PO QHS atorvastatin 80 mg Tablet 80 mg PO QHS 30 Days Qty: 30 0RF clopidogrel 75 mg Tablet 75 mg PO DAILY 30 Days Qty: 30 0RF Referrals / Follow Up: Edin Cardenas MD [Primary Care Provider] - Within 2 Weeks Disposition Disposition (needs filled in before D/C Order can be placed): Assisted Living Charges/Coding Visit Charges Inpatient E&M: 87319 Disch Hosp >30min
[2022-08-20 12:50] LABS: Magnesium 1.9 mg/dL (1.6-2.6)
--- NOTE | 2022-08-20 13:34 | CASEMGMT ---
JIM called [facility] and spoke with Fiona. JIM requested wheelchair fruit or nut picker for patient. JIM let Fiona know patient will need a wheelchair and our preferred provider is [facility]. The confirmation number is: [id number]. Barbi AGLEANA
[2022-08-20] MEDS: predniSONE 20 MG Tablet 60 MG PO (14:07)
[2022-08-20] MEDS: Potassium Chloride Oral Tablet 20 MEQ 40 MEQ PO (14:08)
--- NOTE | 2022-08-20 14:39 | CASEMGMT ---
JIM called [facility] and spoke with Sarah. Sarah said [facility] will be at [facility] to hand picker patient at 3p. JIM notified patient, community youth secretary, RN, and [facility]. JIM also faxed d/c instructions to [facility]. Barbi Wu MSW KERVIN
--- NOTE | 2022-08-20 14:43 | CASEMGMT ---
SW did not complete a PHQ 9 as patient did not have a Stroke or TIA. Per physician he has [place] Palsy. Barbi GALEANA
--- NOTE | 2022-08-20 15:36 | CASEMGMT ---
JIM called [employer] as patient was supposed to be picked up at 3p and it is 3:30 and patient is still at [facility]. JIM was told the company that was assigned is now saying they did not accept the trip. JIM told the lady on the phone that our preferred provider is [facility] and they would do the transport no problem. SW was placed on hold. Eventually JIM was told trip went back to the team that arranges transport and someone will call SW with a pick and shovel man time. JIM called [facility] to see trip was placed in the system and it has not. Barbi Wu FREIGHT DISPATCHER KERVIN
--- NOTE | 2022-08-20 15:54 | NURSING ---
Called report to Janie SARMIENTO at [facility]
--- NOTE | 2022-08-20 16:20 | CASEMGMT ---
JIM called [facility] and spoke with Samantha. JIM explained situation. Samantha said the trip was canceled. JIM re-requested the trip. Samantha cannot route the trip as she is not in [place]. JIM asked Samantha to make a note that patient will need a wheelchair and the preferred provider is [facility]. JIM also gave her the number to the nurses station to call when transport has been set up. The new trip number is: [id number]. They have 3 hours to set up transport. JIM will pass along this information to the school attendance secretary. Barbi Wu QUALITY CONTROL ENGINEER NIGHT WAREHOUSE SELECTOR
== END 2022-08-20 11:49 | disposition home or self-care (01) ==
LOC: ED 18:10 → PCU 08-20 06:57
PROVIDERS: Admitting Provider Student in an Organized Health Care Education/Training Program; Emergency Provider Student in an Organized Health Care Education/Training Program; PCP Family Medicine; Visit Provider Internal Medicine
DX: G51.0 Bell's palsy (principal); J44.9 Chronic obstructive pulmonary disease, unspecified; J96.11 Chronic respiratory failure with hypoxia; F10.10 Alcohol abuse, uncomplicated; I44.0 Atrioventricular block, first degree; E87.6 Hypokalemia; E78.5 Hyperlipidemia, unspecified; N40.0 Benign prostatic hyperplasia without lower urinary tract symptoms; I10 Essential (primary) hypertension; F17.210 Nicotine dependence, cigarettes, uncomplicated; F32.A Depression, unspecified; E55.9 Vitamin D deficiency, unspecified; Z79.82 Long term (current) use of aspirin; H40.9 Unspecified glaucoma; G47.33 Obstructive sleep apnea (adult) (pediatric); Z79.899 Other long term (current) drug therapy; Z79.02 Long term (current) use of antithrombotics/antiplatelets; R47.1 Dysarthria and anarthria; R29.705 NIHSS score 5; R47.81 Slurred speech; I69.322 Dysarthria following cerebral infarction; I69.393 Ataxia following cerebral infarction; I69.392 Facial weakness following cerebral infarction
CPT/HCPCS: 70450; 70496; 70498; 70553; 71045; 80048; 80307; 82077; 83735; 84484; 85025; 85610; 85730; 93005; 94660; 94762; 97161; 97166; 99221; 99285; 99406; A9575; Q9967; A4216; G0378

== ENCOUNTER → 2024-05-17 | Outpatient (CLI) | payer MEDICARE, MEDICAID, SELFPAY ==
[2024-05-17 17:53] LABS: Absolute Lymphocyte Count 3.08 X10^3/uL (0.83-4.51); Absolute Neutrophil Count 6.1 X10^3/uL (2.0-7.7); Basophil# 0.08 X10^3/uL; Basophil% 0.8 % (0-1); Eosinophil# 0.25 X10^3/uL; Eosinophils% 2.4 % (0-5); Hemoglobin 13.4 g/dL (13.0-16.5); Lymphocyte # 3.08 X10^3/ul (0.83-4.51); Lymphocyte % 29.9 % (19-41); Mean Corp Hgb Conc 31.9 g/dL (32-36); Mean Corpuscular Volume 84.7 fL (80-94); Mean Platelet Vol. 10.4 fl (6.2-12.0); Monocyte# 0.71 X10^3/uL; Monocyte% 6.9 % (0-10); NRBC Flagged by Analyzer 0 % (0-5); Neutrophil # 6.14 X10^3/uL (2.7-7.7); Neutrophil % 59.7 % (47-70); Platelet Count 265 K/mm3 (150-450); RBC Distribution Width CV 14.5 % (11.6-14.6); RBC Distribution Width SD 44.2 fl (35.1-43.9); Red Blood Count 4.96 M/mm3 (4.6-6.2); White Blood Count 10.3 K/mm3 (4.4-11.0)
[2024-05-17 18:08] LABS: Vitamin D,25 Hydroxy 93.7 ng/mL
[2024-05-17 18:13] LABS: ALB/GLOB Ratio 0.9 RATIO (0.9-2.4); AST(SGOT) 16 U/L (15-37); Alanine Aminotransfer ALT/SGPT 24 U/L (16-61); Albumin, Serum 3.4 g/dL (3.2-5.0); Alkaline Phosphatase 121 U/L (45-117); Anion Gap 5 (5-15); BUN 18 mg/dL (7-18); BUN/Creat Ratio 18.2 RATIO (10-20); Calcium,Total 9.1 mg/dL (8.5-10.1); Chloride 110 mmol/L (98-107); Cholesterol 104 mg/dL (200); Creatinine, Serum 0.99 mg/dL (0.70-1.30); EST Glomerular Filtration Rate 79 mL/min (>60); Est Glom Filt Rate - Afr Amer 95 mL/min (>60); Globulin 3.6 g/dL (2.2-4.2); Glucose 101 mg/dL (74-106); High Density Lipoprotein 48 mg/dL; Potassium 3.7 mmol/L (3.5-5.1); Sodium Level 141 mmol/L (136-145); Triglycerides 138 mg/dL; Very Low Density Lipoprotein 28 mg/dL (5-40)
== END | disposition home or self-care (01) ==
PROVIDERS: Family Medicine; PCP Family Medicine; Visit Provider Family Medicine
DX: I10 Essential (primary) hypertension (principal); E55.9 Vitamin D deficiency, unspecified; E87.6 Hypokalemia
CPT/HCPCS: 36415; 80053; 80061; 82306; 84443; 85025

== ENCOUNTER → 2024-06-04 | Outpatient (CLI) | payer MEDICARE, MEDICAID, SELFPAY ==
--- NOTE | 2024-06-04 14:04 | CT_ITS ---
HISTORY: NICOTINE DEPENDENCE. TECHNIQUE: Helically acquired images were obtained of the chest without contrast. A radiation dose optimization technique was used for this scan. 612 images. COMPARISON: XR 08/19/2022, CT 02/15/2025. FINDINGS: LARGE AIRWAYS: Patent. LUNGS: Emphysema with mild linear atelectasis or scarring in the lingula and lower lobes. No suspicious nodule or acute alveolar consolidation. Chronic elevation of the left hemidiaphragm. PLEURA: No pneumothorax or significant pleural effusion. HEART/PERICARDIUM: Heart within normal limits in size with multivessel coronary artery calcification. No pericardial effusion. VESSELS: Thoracic aorta nondilated. Atherosclerosis present. MEDIASTINUM/ABIOLA: No pathologically enlarged adenopathy. UPPER ABDOMEN: Multiple hepatic and renal cysts again seen. BONES: Degenerative change. CT/Low Dose CT Lung Screening IMPRESSION: Lung-RADS category 1: Continue annual screening with low dose CT. Electronically Signed: Olga Champagne MD at 12:43 EST ,
== END | disposition home or self-care (01) ==
LOC: CT 13:59
PROVIDERS: PCP Family Medicine; Referring Provider Nurse Practitioner Family; Visit Provider Nurse Practitioner Family
DX: Z12.2 Encounter for screening for malignant neoplasm of respiratory organs (principal); J43.9 Emphysema, unspecified; Z87.891 Personal history of nicotine dependence; I25.10 Atherosclerotic heart disease of native coronary artery without angina pectoris
CPT/HCPCS: 71271